=== PATIENT | male | born 1945 | race Caucasian/White ===

== ENCOUNTER 2016-12-12 12:03 | Inpatient (IN) | payer OTHER ==
--- NOTE | ~2016-12-12 | CR63 ---
[facility] A Service of [facility] RADIOLOGY TEXT RESULTS PATIENT: HANNAH SHRESTHA LOCATION: [facility] 308- : 43 UNIT #: [id number] AGE: [address]: Chelsea Rivers MD SEX: M ORDER DR: [id number] [facility] [address]. [place], [place] [address] [id number] I MR#: [id number] Acc #: [id number] NAME: HANNAH SHRESTHA : 1945 SEX: M STUDY DATE/TIME: 12/14/2016 18:02 UNIT: [address] ROOM: [facility] STUDY DESCRIPTION: CR Chest 2 View Attending Physician: Chelsea Rivers M.D. Ordering Physician: Chelsea Rivers M.D. MEDICAL IMAGING REPORT This report is preliminary unless electronic signature is present EXAM Chest, PA and lateral, 12/14/2016. HISTORY Short of breath for 5 days, unable to keep food down, abdominal pain. Smoking history. FINDINGS The heart is enlarged, but stable, compared with 10/09/2016, status post median sternotomy. Tracheostomy is unchanged. There are bilateral pleural effusions, with bibasilar infiltrates or atelectasis. Underlying emphysematous changes. Mild pulmonary edema. No pneumothorax. Right humeral prosthesis. Dictated by... Eb Hoang M.D. THIS IS AN ELECTRONICALLY VERIFIED REPORT Eb Hoang M.D. at 12/15/2016 3:30 PM Karen TD: 12/15/2016 14:41 JOB #: [id number] MEDICAL IMAGING REPORT COPY
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
--- NOTE | ~2016-12-12 | OR ---
Unit #: [id number] #: [id number] Patient: HANNAH SHRESTHA [id number] [address] [address] [id number] I MR#: [id number] NAME: HANNAH SHRESTHA ROOM: [facility] Date of Procedure: 12/14/2016 Admission Date: 12/12/2016 Surgeon: Adam Mcpherson M.D. : 1945 Attending Physician: Chelsea Rivers M.D. OPERATIVE REPORT PROCEDURE PERFORMED Esophagogastroduodenoscopy with biopsy. INDICATIONS FOR PROCEDURE The patient with severe epigastric and upper abdominal pain, history of peptic ulcer disease, and esophagitis. MEDICATIONS Monitored anesthesia. POSTOPERATIVE FINDINGS 1. No esophagitis noted. 2. Mild gastritis involving body and antrum, biopsy was taken. No ulcers were seen. 3. Normal duodenum and distal duodenum. PLAN Continue with PPI and symptomatic treatment. DESCRIPTION OF PROCEDURE The patient was explained of the procedure, risks, and benefits along with risks and benefits of anesthesia. He was brought to the endoscopy room. Propofol anesthesia was given. Bite block was placed. The scope was passed down the mouth into the esophagus, stomach, duodenum, and distal duodenum. Findings as described. Biopsies were taken. Gently, the scope was pulled out of the patient's mouth. He tolerated it well. Dictated by... Samantha Shi/cinthya TD: 12/14/2016 22:44 JOB #: [id number] Unit #: [id number] #: [id number] Patient: HANNAH SHRESTHA OPERATIVE REPORT X Adam Mcpherson MD X PROCEDURE OPERATIVE NOTE
--- NOTE | ~2016-12-12 | CT4 ---
[facility] A Service of [facility] RADIOLOGY TEXT RESULTS PATIENT: HANNAH SHRESTHA LOCATION: [facility] 308- : 43 UNIT #: [id number] AGE: [address]: Chelsea Rivers MD SEX: M ORDER DR: [id number] [facility] [address] [place], [place] [address] [id number] I MR#: [id number] Acc #: [id number] NAME: HANNAH SHRESTHA : 1945 SEX: M STUDY DATE/TIME: 12/12/2016 19:42 UNIT: A [facility] ROOM: [facility] STUDY DESCRIPTION: CT Abd and Pelv Wo Cont Attending Physician: Chelsea Rivers M.D. Ordering Physician: Adam Mcpherson M.D. MEDICAL IMAGING REPORT This report is preliminary unless electronic signature is present EXAM CT abdomen and pelvis without contrast, 12/12/2016 HISTORY Left-side upper and lower abdomen pain and nausea and vomiting for [address] exam was performed with one or more of the following radiation dose reduction techniques: automatic exposure control, adjustment of mA and/or kV according to patient size, and iterative reconstruction. FINDINGS CT abdomen and pelvis was performed with oral contrast and without IV contrast. CT ABDOMEN: Mild patchy subsegmental pulmonary infiltrate or atelectasis in the posterior left lung base. Sludge or small stones in the gallbladder versus excreted contrast. The liver, spleen, left kidney, and adrenal glands are normal. A 1 cm cyst in the lateral mid-right kidney. Pancreatic parenchymal atrophy. Normal caliber abdominal aorta. CT PELVIS: Normal appendix. Streak artifact from right hip prosthesis degrades several images. Lumbosacral interspace implant. The visualized urinary bladder is unremarkable. No ascites or inflammatory stranding. IMPRESSION 1. No acute findings in the abdomen or pelvis. No bowel obstruction or urinary obstruction. Mild patchy subsegmental pulmonary infiltrate or atelectasis in the posterior left lung base. 2. Generalized pancreatic parenchymal atrophy. 3. Normal appendix. [facility] A Service of [facility] RADIOLOGY TEXT RESULTS PATIENT: HANNAH SHRESTHA LOCATION: [facility] 308-01 : 43 UNIT #: [id number] AGE: [address]: Chelsea Rivers MD SEX: M ORDER DR: Dictated by... Antione Foss M.D. THIS IS AN ELECTRONICALLY VERIFIED REPORT Antione Foss M.D. at 12/13/2016 2:20 PM FAUSTO/evaristo TD: 12/13/2016 04:27 JOB #: [id number] MEDICAL IMAGING REPORT COPY
--- NOTE | ~2016-12-12 | CO ---
Unit #: [id number] #: [id number] Patient: HANNAH SHRESTHA [id number] [address] [place], [place] [address] [id number] I MR#: [id number] NAME: HANNAH SHRESTHA ROOM: 308 Age: 71 Sex: M Admission Date: 12/12/2016 : 1945 Attending Physician: Chelsea Rivers M.D. Consultation Date: 12/12/2016 CONSULTATION REPORT REASON FOR CONSULTATION Abdominal pain. HISTORY OF PRESENTING ILLNESS Mr. Khalil is a 71-year-old gentleman with history of severe COPD with tracheostomy, coronary artery disease, and hypertension. He was admitted today with complaints of abdominal pain. He has been having abdominal pain for 4 days. It is moderate to severe. He has been having recurrent vomiting every time he eats. He throws up. He has no hematemesis. He has not had a bowel movement in 4 days. Denies any fever or chills. Denies any NSAID use. Denies any alcohol use. PAST MEDICAL HISTORY Significant for history of severe esophagitis and antral ulcer in the past, otherwise as mentioned above. SOCIAL HISTORY Nonsmoker. Nonalcoholic. FAMILY HISTORY Noncontributory. MEDICATIONS Reviewed. REVIEW OF SYSTEMS Complete 10-point review of systems was done, as mentioned above. Review of further systems was negative. PHYSICAL EXAMINATION VITAL SIGNS: Stable. Temperature 97.5, pulse 61, respirations 18, blood pressure 114/66. HEENT: Pupils equal and reactive. Sclerae anicteric. Oral mucosa moist. NECK: No JVD. No lymphadenopathy. CHEST: Clear to auscultation. Few scattered rhonchi bilaterally. CARDIOVASCULAR: Regular rate and rhythm. No murmurs. ABDOMEN: Significantly tender particularly in the left upper quadrant, left flank area. No guarding. No masses palpable. No ascites clinically. EXTREMITIES: Without clubbing, cyanosis, or edema. NEUROLOGIC: Intact. SKIN: Warm and dry. DIAGNOSTIC STUDIES LABORATORY RESULTS: Chemistry showed BUN and creatinine 28 and 2.3, which Unit #: [id number] #: [id number] Patient: HANNAH SHRESTHA is new. LFTs were normal. Amylase 51, borderline high. Lipase 43. CBC with a hemoglobin of 11.4, platelet count and white count normal. ASSESSMENT AND PLAN The patient with significant new onset abdominal pain. Amylase and lipase are not consistent with acute pancreatitis. History of severe esophagitis and peptic ulcer disease in the past. CT scan is pending at this time. We will continue with PPI therapy, symptomatic pain control, and IV hydration for now. We will keep him n.p.o. until diagnosis as established. Thank you, Dr. Rivers for this interesting consult. We will follow along. Dictated by... Samantha Shi/cinthya TD: 12/13/2016 01:10 JOB #: [id number] CONSULTATION REPORT X Adam Mcpherson MD X CONSULTATION REPORT
[~2016-12-12 12:03] MED LIST: ALLERGY10 M2 PO; AMIODARONE PO; ANEXSIA 7.5/3251 TA1 PO; ANTI-DIARRHEAL2 M1 PO; ASPIRIN EC81 M1 PO; ASPIRIN PO; ASPIRIN81 MG PO; ATORVASTATIN CA20 MG PO; AUGMENTIN875 MG PO; B-12500 MCG PO; BACLOFEN10 MG PO; BACLOFEN20 M1 PO; BAYER CHEWABLE81 MG PO; CALCITONIN; CALCITONIN PO; CALCIUM + D 6001 TA1 PO; CARDIZEM CD120 M1 PO; CARTIA XT120 MG PO; CELEXA10 M1 PO; CELEXA10 MG PO; CITALOPRAM HBR10 MG PO; CLOPIDOGREL BIS75 MG PO; COLACE PO; COLESTID PO; COLESTIPOL HCL1 G PO; COREG6.25 M1 PO; CYMBALTA PO; DEPAKOTE ER250 MG PO; DESYREL50 MG PO; DIVALPROEX SOD250 M1 PO; DOXYCYCLINE HY100 M3 PO; ELIQUIS5 MG PO; FLAGYL PO; FUROSEMIDE40 MG PO; HYDROCODON-ACE1 EAC5 PO; HYDROCODON-ACE1 EAC7 PO; HYDROCODONE-APA1 T54 PO; HYDROXYZINE HCL25 M1 PO; LASIX PO; LASIX20 MG PO; LEVAQUIN750 M1 PO; LEVAQUIN750 MG PO; LIPITOR20 MG PO; LOPRESSOR PO; MEDROL DOSEPAK4 MG PO; MELOXICAM15 MG PO; METOPROLOL TART25 MG PO; MINIPRESS1 MG PO; MOBIC PO; MOTRIN600 MG PO; NEURONTIN PO; NEURONTIN100 MG PO; NEURONTIN300 MG PO; NEURONTIN800 MG PO; NICOTINE TRANSD14 MG EXT; NITROGLYCERIN0.3 MG SL; NITROGLYCERIN0.4 MG SL; NITROSTAT0.6 MG SL; NYSTATIN5 ML PO; PANTOPRAZOLE SO40 MG PO; PERCOCET 5-3251 TAB PO; PHENERGAN25 M1 PO; PRAVACHOL PO; PREDNISONE PO; PREDNISONE10 MG PO; PREDNISONE10 MG/DOSE PO; PROTONIX PO; TOPROL XL50 MG PO; TRAZODONE PO; TYLENOL325 M1 PO; VANCOMYCIN HCL125 MG PO; VIT B-12 PO; VITAMIN B12-FO1 EACH PO; ZANAFLEX PO; ZYRTEC10 M2 PO; [UNRECOGNIZED DRUG - CODE]
[2016-12-12 14:17] LABS: HEMATOCRIT 35.1 % (38.0-50.0); HEMOGLOBIN 11.4 gm/dL (13.0-16.0); MEAN CELL VOLUME 84.6 FL (83-96); MEAN CORPUSCULAR HEMOGLOBIN 27.5 PG (28-34); MEAN CORPUSCULAR HGB CONC 32.5 g/dL (30-36); MEAN PLATELET VOLUME 8.7 FL (6.5-11.5); RED BLOOD COUNT 4.15 X10e (3.90-5.60); RED CELL DISTRIBUTION WIDTH 19.3 % (11.0-15.5); WHITE BLOOD COUNT 8.5 X10e3 (4.0-10.5)
[2016-12-12 14:42] LABS: ALBUMIN SERUM 3.1 g/dL (3.5-5.0); BILIRUBIN,TOTAL 0.6 mg/dL (0.2-2.0); BUN/CREATININE RATIO 12.17; CALCIUM SERUM 8.4 mg/dL (8.4-10.2); CREATININE SERUM 2.3 mg/dL (0.6-1.4); GLOM FILT RATE Estimated 29.8 mL/min (>60); POTASSIUM 5.2 mmol/L (3.5-5.1); PROTEIN TOTAL SERUM 6.5 g/dL (6.0-8.3)
[2016-12-13 07:09] LABS: HEMATOCRIT 32.1 % (38.0-50.0); HEMOGLOBIN 10.1 gm/dL (13.0-16.0); MEAN CELL VOLUME 83.9 FL (83-96); MEAN CORPUSCULAR HEMOGLOBIN 26.5 PG (28-34); MEAN CORPUSCULAR HGB CONC 31.6 g/dL (30-36); MEAN PLATELET VOLUME 8.4 FL (6.5-11.5); RED BLOOD COUNT 3.83 X10e (3.90-5.60); RED CELL DISTRIBUTION WIDTH 19.2 % (11.0-15.5); WHITE BLOOD COUNT 6.3 X10e3 (4.0-10.5)
[2016-12-13 07:13] LABS: ALBUMIN SERUM 2.5 g/dL (3.5-5.0); BILIRUBIN,TOTAL 0.6 mg/dL (0.2-2.0); BUN/CREATININE RATIO 13.52; CALCIUM SERUM 7.6 mg/dL (8.4-10.2); CREATININE SERUM 1.7 mg/dL (0.6-1.4); GLOM FILT RATE Estimated 42.2 mL/min (>60); POTASSIUM 4.2 mmol/L (3.5-5.1); PROTEIN TOTAL SERUM 5.2 g/dL (6.0-8.3)
[2016-12-13] MEDS ORDERED: NEURONTIN100 MG PO (12:29)
[2016-12-13] MEDS ORDERED: AMIODARONE HCL100 MG PO (12:32)
[2016-12-13] MEDS ORDERED: ALBUTEROL2.5 MG/0.5 INH (12:32)
[2016-12-13] MEDS ORDERED: CARTIA XT240 M1 PO (12:33)
[2016-12-13] MEDS ORDERED: IRON325 ( 65 ) PO (12:35)
[2016-12-13] MEDS ORDERED: LEVOTHYROXINE100 MCG PO (12:35)
[2016-12-13] MEDS ORDERED: METOPROLOL SUCC25 MG PO (12:36)
[2016-12-13] MEDS ORDERED: CLARITIN10 M2 PO (12:36)
[2016-12-13] MEDS ORDERED: FLOMAX0.4 M1 PO (12:37)
[2016-12-13] MEDS ORDERED: VITAMIN D50000 UNIT PO (12:38)
[2016-12-14 04:32] LABS: HEMATOCRIT 30.4 % (38.0-50.0); MEAN CELL VOLUME 84.4 FL (83-96); MEAN CORPUSCULAR HEMOGLOBIN 27.8 PG (28-34); MEAN CORPUSCULAR HGB CONC 32.9 g/dL (30-36); MEAN PLATELET VOLUME 8.3 FL (6.5-11.5); RED BLOOD COUNT 3.61 X10e (3.90-5.60); RED CELL DISTRIBUTION WIDTH 19.5 % (11.0-15.5); WHITE BLOOD COUNT 5.9 X10e3 (4.0-10.5)
[2016-12-14 05:53] LABS: ALBUMIN SERUM 2.4 g/dL (3.5-5.0); ALKALINE PHOSPHATASE 42 U/L (32-92); ALT (SGPT) 11 U/L (10-40); AST (SGOT) 24 U/L (10-42); BILIRUBIN,TOTAL 0.5 mg/dL (0.2-2.0); BLOOD UREA NITROGEN 14 mg/dL (9-23); BUN/CREATININE RATIO 11.66; CALCIUM SERUM 7.2 mg/dL (8.4-10.2); CARBON DIOXIDE 23 mmol/L (22-31); CHLORIDE 106 mmol/L (100-111); CREATININE SERUM 1.2 mg/dL (0.6-1.4); GLOM FILT RATE Estimated ABOVE60 mL/min (>60); GLUCOSE FASTING 68 mg/dL (70-110); POTASSIUM 3.4 mmol/L (3.5-5.1); PROTEIN TOTAL SERUM 4.9 g/dL (6.0-8.3); SODIUM 133 mmol/L (135-145)
[2016-12-15 05:41] LABS: HEMATOCRIT 30.4 % (38.0-50.0); HEMOGLOBIN 9.8 gm/dL (13.0-16.0); MEAN CELL VOLUME 84.7 FL (83-96); MEAN CORPUSCULAR HEMOGLOBIN 27.4 PG (28-34); MEAN CORPUSCULAR HGB CONC 32.3 g/dL (30-36); MEAN PLATELET VOLUME 8.4 FL (6.5-11.5); RED BLOOD COUNT 3.59 X10e (3.90-5.60); RED CELL DISTRIBUTION WIDTH 19.7 % (11.0-15.5); WHITE BLOOD COUNT 5.6 X10e3 (4.0-10.5)
[2016-12-15 06:18] LABS: ALBUMIN SERUM 2.2 g/dL (3.5-5.0); ALKALINE PHOSPHATASE 44 U/L (32-92); ALT (SGPT) 10 U/L (10-40); AST (SGOT) 22 U/L (10-42); BILIRUBIN,TOTAL 0.6 mg/dL (0.2-2.0); BLOOD UREA NITROGEN 7 mg/dL (9-23); CALCIUM SERUM 7.4 mg/dL (8.4-10.2); CARBON DIOXIDE 23 mmol/L (22-31); CHLORIDE 113 mmol/L (100-111); CREATININE SERUM 0.7 mg/dL (0.6-1.4); GLOM FILT RATE Estimated ABOVE60 mL/min (>60); GLUCOSE FASTING 68 mg/dL (70-110); POTASSIUM 3.8 mmol/L (3.5-5.1); PROTEIN TOTAL SERUM 4.7 g/dL (6.0-8.3); SODIUM 139 mmol/L (135-145)
[2016-12-15] MEDS ORDERED: NORCO 10-325 TA1 TAB PO (14:57)
== END 2016-12-15 15:26 | disposition home or self-care (01) | DRG 392 ==
LOC: CEDOF 12:03 → C3A PCU 12:56
PROVIDERS: Internal Medicine
PROC: B54NZZA Ultrasonography of Left Upper Extremity Veins, Guidance (ICD-10-PCS; 2016-12-14)
PROC: 0DB78ZX Excision of Stomach, Pylorus, Via Natural or Artificial Opening Endoscopic, Diagnostic (ICD-10-PCS; principal; 2016-12-14 15:05)
PROC: 05H433Z Insertion of Infusion Device into Left Innominate Vein, Percutaneous Approach (ICD-10-PCS; 2016-12-14 15:05)
DX: R10.9 Unspecified abdominal pain (principal); N17.9 Acute kidney failure, unspecified; L89.220 Pressure ulcer of left hip, unstageable; J98.11 Atelectasis; Z88.5 Allergy status to narcotic agent; Z91.041 Radiographic dye allergy status; I25.10 Atherosclerotic heart disease of native coronary artery without angina pectoris; Z95.1 Presence of aortocoronary bypass graft; J44.9 Chronic obstructive pulmonary disease, unspecified; F17.210 Nicotine dependence, cigarettes, uncomplicated; I10 Essential (primary) hypertension; E78.5 Hyperlipidemia, unspecified; Z86.73 Personal history of transient ischemic attack (TIA), and cerebral infarction without residual deficits; G89.4 Chronic pain syndrome; K59.00 Constipation, unspecified; K29.70 Gastritis, unspecified, without bleeding
CPT/HCPCS: 71020; 74176; 80053; 82150; 82947; 83690; 85027; 86140; 88305; 88312; 94640; 94760; C9113; J2270; J2370

== ENCOUNTER 2016-12-21 21:03 | Emergency (ER) | payer OTHER ==
[~2016-12-21 21:03] MED LIST changes: +ALBUTEROL2.5 MG/0.5 INH; +AMIODARONE HCL100 MG PO; +CARTIA XT240 M1 PO; +CLARITIN10 M2 PO; +FLOMAX0.4 M1 PO; +IRON325 ( 65 ) PO; +LEVOTHYROXINE100 MCG PO; +METOPROLOL SUCC25 MG PO; +NORCO 10-325 TA1 TAB PO; +VITAMIN D50000 UNIT PO
[2016-12-21 21:21] LABS: BASOPHIL# 0.1 X10e3 (0-0.3); BASOPHIL% 1.3 % (0-2.5); EOSINOPHIL# 0.1 X10e3 (0-0.7); EOSINOPHIL% 1.4 % (0.0-7.0); HEMATOCRIT 29.1 % (38.0-50.0); HEMOGLOBIN 9.4 gm/dL (13.0-16.0); LYMPHOCYTE# 2.1 X10e3 (1.0-3.5); MEAN CELL VOLUME 85.9 FL (83-96); MEAN CORPUSCULAR HEMOGLOBIN 27.6 PG (28-34); MEAN CORPUSCULAR HGB CONC 32.1 g/dL (30-36); MEAN PLATELET VOLUME 8.4 FL (6.5-11.5); MONOCYTE# 0.9 X10e3 (0-1.0); MONOCYTE% 12.7 % (3.0-12.0); NEUTROPHIL# 3.7 X10e3 (1.5-7.1); NEUTROPHIL% 53.6 % (40-75); PLATELET COUNT 208 X10e3 (140-420); RED BLOOD COUNT 3.39 X10e (3.90-5.60); RED CELL DISTRIBUTION WIDTH 21.1 % (11.0-15.5); WHITE BLOOD COUNT 6.9 X10e3 (4.0-10.5)
[2016-12-21 21:22] LABS: DIFF IND NO
== END 2016-12-21 22:43 | disposition home or self-care (01) ==
LOC: CED 21:03
PROVIDERS: Emergency Medicine
DX: L76.21 Postprocedural hemorrhage of skin and subcutaneous tissue following a dermatologic procedure (principal); I25.10 Atherosclerotic heart disease of native coronary artery without angina pectoris; E78.5 Hyperlipidemia, unspecified; J44.9 Chronic obstructive pulmonary disease, unspecified; I10 Essential (primary) hypertension; I63.9 Cerebral infarction, unspecified; F17.210 Nicotine dependence, cigarettes, uncomplicated; Z88.5 Allergy status to narcotic agent; Z91.041 Radiographic dye allergy status
CPT/HCPCS: 36415; 85025; 86900; 86901; 96374; 96375; 99284; J2270; J2405

== ENCOUNTER 2016-12-24 14:31 | Emergency (ER) | payer OTHER ==
--- NOTE | ~2016-12-24 | CR72 ---
[facility] A Service of [facility] RADIOLOGY TEXT RESULTS PATIENT: HANNAH SHRESTHA LOCATION: [facility] : 43 UNIT #: [id number] AGE: [address]: See Becker MD SEX: M ORDER DR: [id number] [facility] [address] [place], [place] [address] [id number] E MR#: [id number] Acc #: [id number] NAME: HANNAH SHRESTHA : 1945 SEX: M STUDY DATE/TIME: 12/24/2016 14:52 UNIT: [facility] ROOM: STUDY DESCRIPTION: CR Chest Single View Portable Attending Physician: See Becker M.D. Ordering Physician: See Becker M.D. Primary Care Physician: Nakita Quarles M.D. MEDICAL IMAGING REPORT This report is preliminary unless electronic signature is present EXAM Portable chest, 12/24 COMPARISON 12/14 HISTORY SUPPLIED Fall, shortness of breath, pain beginning today. FINDINGS An AP view is obtained. Tracheostomy tube is in good position. Cardiac size is stable. Bilateral interstitial infiltrates persist although there is a little better aeration in the bases. No fractures are identified. Patient does have apparent prior kyphoplasty and right shoulder replacement. CONCLUSION Underlying chronic lung disease with improved aeration at the bases and decrease in pleural fluid. Tracheostomy tube remains in good position. Postop changes of prior sternotomy, vertebroplasty and right shoulder arthroplasty. Dictated by... Sam Sibley M.D. THIS IS AN ELECTRONICALLY VERIFIED REPORT Sam Sibley M.D. at 12/26/2016 3:10 PM TRIPP/lorraine TD: 12/24/2016 19:59 JOB #: [id number] [facility] A Service of [facility] RADIOLOGY TEXT RESULTS PATIENT: HANNAH SHRESTHA LOCATION: [facility] : 43 UNIT #: [id number] AGE: [address]: See Becker MD SEX: M ORDER DR: MEDICAL IMAGING REPORT Page 1 of 1 COPY
--- NOTE | ~2016-12-24 | CT71 ---
[facility] A Service of [facility] RADIOLOGY TEXT RESULTS PATIENT: HANNAH SHRESTHA LOCATION: [facility] : 43 UNIT #: [id number] AGE: [address]: See Becker MD SEX: M ORDER DR: [id number] [facility] [address] [place], [place] [address] [id number] E MR#: [id number] Acc #: [id number] NAME: HANNAH SHRESTHA : 1945 SEX: M STUDY DATE/TIME: 12/24/2016 12:48 UNIT: [facility] ROOM: STUDY DESCRIPTION: CT Head Wo Contrast Attending Physician: See Becker M.D. Ordering Physician: See Becker M.D. Primary Care Physician: Nakita Quarles M.D. MEDICAL IMAGING REPORT This report is preliminary unless electronic signature is present EXAM CT brain without contrast 12/24/2016 HISTORY Fell this morning, head and neck pain. TECHNIQUE/COMPARISON Transaxial imaging of the brain was performed without contrast and compared to a study of December 29, 2015. This CT exam was performed with one or more of the following radiation dose reduction techniques: automatic exposure control, adjustment of mA and/or kV according to patient size, and iterative reconstruction. FINDINGS Ventricular size and configuration remain normal for the patient's age. No intra or extraaxial mass lesions, fluid collections or mass effect are seen. No focal areas of low attenuation or evidence of acute hemorrhage. The patient has chronic mucosal disease in the left maxillary sinus. There is some debris present dependently within the sphenoid sinus. No fractures are identified. CONCLUSION Age-appropriate atrophy. Paranasal sinus disease. No acute findings. Dictated by... Sam Sibley M.D. THIS IS AN ELECTRONICALLY VERIFIED REPORT Sam Sibley M.D. at 12/24/2016 5:09 PM TRIPP/curt TD: 12/24/2016 16:07 [facility] A Service of [facility] RADIOLOGY TEXT RESULTS PATIENT: HANNAH SHRESTHA LOCATION: [facility] #: [id number] : 43 UNIT #: [id number] AGE: [address]: See Becker MD SEX: M ORDER DR: JOB #: [id number] MEDICAL IMAGING REPORT Page 1 of 1 COPY
--- NOTE | ~2016-12-24 | EKG ---
PATIENT: HANNAH SHRESTHA UNIT #: [id number] Ventricular Rate: 70 BPM Atrial Rate: 70 BPM P-R Interval: 168 ms QRS Duration: 122 ms Q-T Interval: 444 ms QTC Calculation(Bezet): 479 ms P [place]: 72 degrees Calculated R [place]: -67 degrees Calculated T [place]: 78 degrees Diagnosis Line: Normal sinus rhythm Diagnosis Line: Left axis deviation Diagnosis Line: Right bundle branch block Diagnosis Line: Abnormal ECG Diagnosis Line: When compared with ECG of 10-OCT-2016 15:53, Diagnosis Line: Premature atrial complexes are no longer Present Diagnosis Line: Right bundle branch block is now Present Diagnosis Line: Confirmed by GANESH HUMPHREYS MD ([id number]) on Diagnosis Line: 12/25/2016 2:24:10 PM INTERPRETING MD: PETR LASSITER
--- NOTE | ~2016-12-24 | CR150 ---
[facility] A Service of [facility] RADIOLOGY TEXT RESULTS PATIENT: HANNAH SHRESTHA LOCATION: [facility] : 43 UNIT #: [id number] AGE: [address]: See Becker MD SEX: M ORDER DR: [id number] [facility] [address] [facility] [place], [place] [address] [id number] E MR#: [id number] Acc #: [id number] NAME: HANNAH SHRESTHA : 1945 SEX: M STUDY DATE/TIME: 12/24/2016 13:22 UNIT: [facility] ROOM: STUDY DESCRIPTION: CR Hip Min 2 Views Lt Attending Physician: See Becker M.D. Ordering Physician: See Becker M.D. Primary Care Physician: Nakita Quarles M.D. MEDICAL IMAGING REPORT This report is preliminary unless electronic signature is present EXAM Left hip series 11/26/2016 INDICATIONS 71-year-old male with fall today and pain. Left-sided abscess last Saturday, fell today. 2 views of the left hip. COMPARISON STUDIES No comparisons. FINDINGS The patient is status post total right hip replacement and surgery of the lumbosacral junction. The bones are osteopenic. No acute fracture. Mild degenerative change left hip. Atherosclerotic calcifications are present. Impression The bones are osteopenic. There is degenerative change of the left hip but no acute fracture. Preexisting postop changes of right hip replacement. Dictated by... Meño Mccall M.D. THIS IS AN ELECTRONICALLY VERIFIED REPORT Meño Mccall M.D. at 12/25/2016 9:11 AM Joanna TD: 12/24/2016 16:22 JOB #: [id number] MEDICAL IMAGING REPORT [facility] A Service [facility] RADIOLOGY TEXT RESULTS PATIENT: HANNAH SHRESTHA LOCATION: [facility] : 43 UNIT #: [id number] AGE: [address]: See Becker MD SEX: M ORDER DR: Page 1 of 1 COPY
--- NOTE | ~2016-12-24 | CT52 ---
[facility] A Service of [facility] RADIOLOGY TEXT RESULTS PATIENT: HANNAH SHRESTHA LOCATION: [facility] : 43 UNIT #: [id number] AGE: [address]: See Bekcer MD SEX: M ORDER DR: [id number] [facility] [address] [place], [place] [address] [id number] E MR#: [id number] Acc #: [id number] NAME: HANNAH SHRESTHA : 1945 SEX: M STUDY DATE/TIME: 12/24/2016 12:48 UNIT: [facility] ROOM: STUDY DESCRIPTION: CT Cervical Spine Wo Cont Attending Physician: See Becker M.D. Ordering Physician: See Becker M.D. Primary Care Physician: Nakita Quarles M.D. MEDICAL IMAGING REPORT This report is preliminary unless electronic signature is present EXAM CT of the cervical spine HISTORY Fell this morning complaining of head and neck pain. Previous cervical fusion. TECHNIQUE Transaxial imaging of the cervical spine was performed with multiplanar reconstructions. This CT exam was performed with one or more of the following radiation dose reduction techniques: automatic exposure control, adjustment of mA and/or kV according to patient size, and iterative reconstruction. COMPARISON Study is reviewed and compared directly to the patient's prior study of 01/23/2013. FINDINGS The patient has a tracheostomy tube in place. On the bottom most image the patient has an infiltrate in the left upper lobe. There is asymmetric apical pleural thickening on the right. Patient has had pedicle screw fixation from C3 through C7. There has been an anterior fusion at C6-7. There has been posterior decompression from C4-C6. Alignment is normal with no subluxations. There is osteopenia. No fractures or subluxation identified. The patient has had a hemilaminotomy at apparently T1 on the right. No fractures or subluxation identified. There is no paravertebral soft tissue swelling present. Dense atherosclerotic calcifications are seen in the carotid bifurcations. The patient has had a left radical neck dissection. CONCLUSIONS [facility] A Service of [facility] RADIOLOGY TEXT RESULTS PATIENT: HANNAH SHRESTHA [facility] #[facility] [id number] : 43 UNIT #: [id number] AGE: [address]: See Becker MD SEX: M ORDER DR: Postsurgical changes as detailed above. No subluxation or fractures identified. Postop changes of prior left radical neck dissection. Left upper lobe infiltrate which appears new. Biapical pleural thickening asymmetric, right greater than left. This also was present on the study of January of 2013. No fractures or subluxation identified. Dictated by... Sam Sibley M.D. THIS IS AN ELECTRONICALLY VERIFIED REPORT Sam Sibley M.D. at 12/24/2016 5:09 PM TRIPP/mike TD: 12/24/2016 16:51 JOB #: [id number] MEDICAL IMAGING REPORT COPY
[2016-12-24 15:16] LABS: BASOPHIL% 0.5 % (0-2.5); EOSINOPHIL% 0.3 % (0.0-7.0); HEMATOCRIT 27.2 % (38.0-50.0); HEMOGLOBIN 8.7 gm/dL (13.0-16.0); LYMPHOCYTE% 10.7 % (17.0-45.0); MEAN CELL VOLUME 87.7 FL (83-96); MEAN CORPUSCULAR HEMOGLOBIN 28.1 PG (28-34); MEAN PLATELET VOLUME 8.2 FL (6.5-11.5); MONOCYTE# 0.8 X10e3 (0-1.0); MONOCYTE% 8.3 % (3.0-12.0); NEUTROPHIL# 7.8 X10e3 (1.5-7.1); NEUTROPHIL% 80.2 % (40-75); PLATELET COUNT 195 X10e3 (140-420); RED CELL DISTRIBUTION WIDTH 20.9 % (11.0-15.5); WHITE BLOOD COUNT 9.7 X10e3 (4.0-10.5)
[2016-12-24 15:25] LABS: DIFF IND NO
[2016-12-24 15:45] LABS: ALBUMIN SERUM 2.7 g/dL (3.5-5.0); BILIRUBIN,TOTAL 0.3 mg/dL (0.2-2.0); CREATININE SERUM 1.7 mg/dL (0.6-1.4); GLOM FILT RATE Estimated 42.2 mL/min (>60); POTASSIUM 4.3 mmol/L (3.5-5.1); PROTEIN TOTAL SERUM 5.7 g/dL (6.0-8.3)
== END 2016-12-24 18:40 | disposition home or self-care (01) ==
LOC: CED 14:31
PROVIDERS: Emergency Medicine
DX: S41.012A Laceration without foreign body of left shoulder, initial encounter (principal); S41.011A Laceration without foreign body of right shoulder, initial encounter; S30.0XXA Contusion of lower back and pelvis, initial encounter; J18.9 Pneumonia, unspecified organism; W19.XXXA Unspecified fall, initial encounter; Y92.009 Unspecified place in unspecified non-institutional (private) residence as the place of occurrence of the external cause
CPT/HCPCS: 36415; 70450; 71010; 72125; 73502; 80053; 85025; 93005; 96365; 96367; 99284; J0456; J0696

== ENCOUNTER 2016-12-26 17:46 | Inpatient (IN) | payer OTHER ==
--- NOTE | ~2016-12-26 | DS ---
Unit #: [id number] #: [id number] Patient: HANNAH SHRESTHA [id number] [address] [address] [id number] I MR#: [id number] NAME: HANNAH SHRESTHA ROOM: 223 Age: 71 Sex: M Admission Date: 12/26/2016 : 1945 Discharge Date: 12/30/2016 Attending Physician: Dionisio Reeves M.D. Referring Physician: Nakita Quarles M.D. Primary Care Physician: Nakita Quarles M.D. DISCHARGE SUMMARY CONSULTATIONS HIPS. PROCEDURE PERFORMED On 12/28/2016, he underwent debridement of left hip wound. ADMITTING DIAGNOSES Bleeding and chronic left hip wound. DISCHARGE DIAGNOSES Bleeding and chronic left hip wound. SECONDARY DIAGNOSIS Anemia. BRIEF HOSPITAL COURSE This is a 71-year-old gentleman, who has undergone debridements of his chronic nonhealing left hip wound in a wound clinic. He had some severe bleeding at home, and came in and bleeding was subsided with some Surgicel. The following morning, he had some necrotic areas of the wound that needed further debridement. He was taken for that. His hemoglobin did drift down below 7 and he was transfused 2 units and his hemoglobin was 10 on the morning of discharge. DISPOSITION Discharged to home. DISCHARGE INSTRUCTIONS He is to continue dressing changes in the left hip with normal saline wet-to-dry dressing changes twice a day. His is one who helps to his dressing changes. He is to follow up with Dr. Locke in the Wound Clinic and has been instructed to resume his home medications. Dictated by... Mt Garza III, M.D. VCL/cinthya TD: 12/30/2016 23:37 JOB #: [id number] Unit #: [id number] #: [id number] Patient: HANNAH SHRESTHA DISCHARGE SUMMARY Page 1 of 1 X Mt Garza III, MD DISCHARGE SUMMARY
--- NOTE | ~2016-12-26 | HP ---
Unit #: [id number] #: [id number] Patient: HANNAH BELL [id number] [address] [place], [place] [address] [id number] I MR#: [id number] NAME: HANNAH BELL ROOM: 223 Age: 71 Sex: M Admission Date: 12/26/2016 : 1945 Attending Physician: Dionisio Reeves M.D. Referring Physician: Nakita Quarles M.D. Primary Care Physician: Nakita Quarles M.D. HISTORY AND PHYSICAL HISTORY OF PRESENT ILLNESS Mr. Bell is a 71-year-old white male with a tracheostomy in place who has a nonhealing left hip wound that had been debrided as an outpatient. This was debrided quite a few days ago. Evidently, he was doing some work yesterday and traumatized this briefly and the wound started bleeding and he could not stop it bleeding. He went to the emergency room. They cauterized it and placed some Surgicel-like material in the wound and the bleeding stopped. However, they wanted to admit him for observation and whether or not it would need any further debridement under anesthesia. PAST MEDICAL HISTORY See previous notes. The patient was just hospitalized approximately two weeks ago. He had complete workup at that time. His medical illnesses are listed as noted with cardiovascular disease and respiratory issues. He does have an indwelling tracheostomy. SOCIAL HISTORY He still smokes occasionally but no alcohol. ALLERGIES He has no known allergies except for codeine and IV contrast. MEDICATIONS His medications are listed per nurse's notes. He was on Plavix which could have contributed to the bleeding. PHYSICAL EXAMINATION GENERAL APPEARANCE: Cooperative, alert, white male. HEENT: Clear with tracheostomy in place. LUNGS: Scattered rales and rhonchi. CARDIAC: Rhythm is regular. ABDOMEN: Soft, nontender, no masses. The area in question is over the left hip. There is some necrotic sluff in the wound. I cannot tell whether or not the wound is really clean because of the material within the wound bed which appears to be the coagulant material. We will start dressing changes on him today and do them every six hours. We will use Candelario straps. I am going to keep him NPO after midnight tonight and we will possibly go ahead and let him go ahead and proceed with possible debridement if needed. Dictated by Lucio Locke M.D. Unit #: [id number] #: [id number] Patient: HANNAH BELL SHEREE/samantha TD: 12/27/2016 07:13 JOB #: [id number] HISTORY AND PHYSICAL Page 1 of 1 X Lucio Locke MD X HISTORY AND PHYSICAL
--- NOTE | ~2016-12-26 | OR ---
Unit #: [id number] #: [id number] Patient: HANNAH SHRESTHA [id number] [address] [place], [place] [address] [id number] Jeana MR#: [id number] NAME: HANNAH SHRESTHA ROOM: 223 Date of Procedure: 12/28/2016 Admission Date: 12/26/2016 Surgeon: Mt Garza III, M.D. : 1945 Attending Physician: Dionisio Reeves M.D. Referring Physician: Nakita Quarles M.D. Primary Care Physician: Nakita Quarles M.D. OPERATIVE REPORT PREOPERATIVE DIAGNOSES Nonhealing wound, left hip with necrosis. POSTOPERATIVE DIAGNOSES Nonhealing wound, left hip with necrosis. PROCEDURES PERFORMED Sharp excisional debridement including skin and subcutaneous tissue, involving the left hip wound that measured approximately 3 inches in diameter. ANESTHESIA General. SPECIMEN Necrotic wound tissue sent to pathology. COMPLICATIONS None apparent. INDICATIONS FOR PROCEDURE This is a 71-year-old gentleman, who has been having some debridements of the left hip wound as an outpatient. It has been chronic. He had some trauma to the area and developed some severe bleeding. He was brought in. The bleeding has subsided. There was some necrotic tissue around the edges and needs to be debrided. DESCRIPTION OF PROCEDURE After consent was obtained, the patient was brought to the operating room and placed in the supine position. We placed a bump under his left hip and the left hip was prepped and draped in standard surgical fashion. Using a scalpel, I performed sharp excisional debridement of the skin and subcutaneous tissue approximately 3 inches in diameter. The pre-existing wound was approximately 2.5 inches in diameter. I debrided this all back to viable tissue. I used cautery for hemostasis and I packed the wound with normal saline wet-to-dry dressing change. He tolerated the procedure without any problems and returned to recovery room in stable condition. Dictated by... Mt Garza III, M.D. Unit #: [id number] #: [id number] Patient: HANNAH SHRESTHA VCL/cinthya TD: 12/29/2016 21:36 JOB #: [id number] OPERATIVE REPORT Page 1 of 1 X Mt Garza III, MD PROCEDURE OPERATIVE NOTE
--- NOTE | ~2016-12-26 | CO ---
Unit #: [id number] #: [id number] Patient: HANNAH SHRESTHA [id number] [address] [place], [place] [address] [id number] I MR#: [id number] NAME: HANNAH SHRESTHA ROOM: 223 Age: 71 Sex: M Admission Date: 12/26/2016 : 1945 Attending Physician: Dionisio Reeves M.D. Primary Care Physician: Nakita Quarles M.D. Consultation Date: 12/27/2016 CONSULTATION REPORT REASON FOR CONSULTATION Medical management. IMPRESSION 1. Left hip cyst, status post excision with recurrent bleeding. 2. Acute blood loss anemia. 3. Chronic hypoxic respiratory failure. 4. Chronic pain syndrome with prior drug seeking behavior. 5. Chronic obstructive pulmonary disease. 6. Coronary artery disease. 7. Frequent PACs. 8. Depression. 9. Gastroesophageal reflux disease. 10. Diastolic dysfunction, last known ejection fraction 45% to 50%. 11. Tobaccoism. 12. Moderate protein malnutrition. 13. Underweight. PLAN 1. We will continue pressure to the wound per Dr. Locke recommendations. We were re-evaluated in case we need further surgical debridement. 2. We will check CBC in the morning and transfuse if necessary. We will check iron and vitamin B12 levels as well and replace if necessary. 3. We will maintain the patient on his home oxygen on 3 L per nasal cannula continuously and my experience with the patient he only uses this on an intermittent basis. 4. Continue home medications for coronary artery disease, COPD, reflux, and depression. 5. We will maintain pain control per [facility]SA's recommendations. 6. SCDs for DVT prophylaxis. HISTORY OF PRESENT ILLNESS Mr. Khalil is a 71-year-old male, known to me who was admitted by A due to left hip bleeding. The patient had reportedly undergone excision of a cyst of the left hip a few weeks ago as an outpatient. About a week after the wound was excised, he developed some bleeding. He presented to the ER on 12/21/2016 for this bleeding and fortunately Dr. Becker was able to get the bleeding stopped. The patient presented back to his primary care physician, at which point, his hemoglobin was stable. The patient was supposed to follow up with Dr. Cornelia today, but yesterday without falling, without any trauma to the wound, without any lifting, his left hip wound began spontaneously bleed. He reportedly soaks through approximately 5 or 6 towels at home, and in the EMS and in Unit #: [id number] #: [id number] Patient: HANNAH SHRESTHA MARY ALICE the ER before the wound was cauterized and I believe Surgicel was also placed. He has not had any further bleeding since that time, but blood counts have dropped. He was placed in observation by [facility] for evaluation and we have been asked to see the patient for his chronic medical conditions. He denies any shortness of breath, chest pain, cough, diarrhea, constipation, melena, or hematochezia. He did recently have a fall at home. He states he feels well otherwise. He denies any dizziness. Denies any fever. He was asking for more pain medications. PAST MEDICAL HISTORY 1. Chronic hypoxic respiratory failure, reportedly maintained on 3 L of oxygen per nasal cannula continuously. 2. Chronic obstructive pulmonary disease. 3. Frequent PACs, which are intermittently symptomatic. 4. Coronary artery disease. 5. Tobaccoism. 6. Hyperlipidemia. 7. Gastroesophageal reflux disease. 8. Depression. 9. History of supraventricular tachycardia. 10. Congestive heart failure, diastolic. 11. Osteoporosis with history of T6 vertebral fracture. 12. Prior history of stroke without residual deficits. 13. Chronic trach following injuries in [place]. 14. Hypothyroidism. 15. Benign prostatic hypertrophy. PAST SURGICAL HISTORY 1. Recent excision of left hip cyst. 2. Prior kyphoplasty to T6. 3. Tracheostomy, multiple neck and back surgeries related to traumatic injuries in [place]. 4. Right shoulder surgery. 5. Coronary artery bypass grafting. ALLERGIES Include codeine and IV dye. HOME MEDICATIONS Include Lipitor 20 mg daily, baclofen 10 mg b.i.d., Celexa 10 mg daily, Depakote ER 250 mg daily, Neurontin 200 mg at bedtime, nitroglycerin 0.4 mg sublingual p.r.n. for chest pain, Protonix 40 mg daily, Desyrel 50 mg at bedtime, Plavix 75 mg daily which is currently on hold, Neurontin 100 mg p.o. b.i.d., amiodarone 200 mg daily, Cartia XT 240 mg daily, iron 325 mg daily, levothyroxine 100 mcg p.o. daily, Claritin 10 mg p.o. daily, metoprolol succinate 25 mg daily, Flomax 0.4 mg daily, vitamin D 50,000 units once weekly, [place] 10/325 one tablet p.o. b.i.d. FAMILY HISTORY Negative. SOCIAL HISTORY The patient still lives in home with his and is independent with ADLs. He continues to smoke a few cigarettes daily and he does use a walker to ambulate. REVIEW OF SYSTEMS With the exception of some left hip pain and recent bleeding, 10-point Unit #: [id number] #: [id number] Patient: HANNAH SHRESTHA review of systems was reviewed extensively and was negative. PHYSICAL EXAMINATION VITAL SIGNS: Temperature 98.0, blood pressure 106/56, pulse rate 63, respiratory rate 16, oxygen saturations 100% on room air. GENERAL: The patient is awake and alert. He is oriented x3. HEENT: Pupils are equally round and react to light bilaterally. Anicteric sclerae. Mild conjunctival pallor. Oropharynx with moist mucous membranes. No erythema or exudate. NECK: Supple. No lymphadenopathy. No thyromegaly. No JVD. Trach is in place and there is no erythema or drainage surrounding the trach. HEART: Regular rate and rhythm without murmur, rub, or gallop. LUNGS: Diminished bilaterally, but otherwise clear without wheezes, rhonchi, or crackles. ABDOMEN: Soft, nontender, and nondistended. Positive bowel sounds. No appreciable hepatosplenomegaly. EXTREMITIES: No cyanosis or clubbing. Trace lower extremity edema. Pedal pulses 2/4. SKIN: Warm and moist. There is some mild pallor. Left hip currently has a dressing in place. NEUROLOGIC: Cranial nerves II through XII intact. Sensation strength and deep tendon reflexes are grossly normal. PSYCHIATRIC: Alert and oriented x3. No suicidal or homicidal ideation. DIAGNOSTIC STUDIES LABORATORY RESULTS: Blood work done in the emergency department, there was a normal INR of 1.2. BMP with a sodium 136, potassium 4.4, chloride 104, bicarb 25, BUN 19, creatinine 1.3, glucose is 79. Calcium mildly low at 8.1, but corrected with albumin is normal. White blood cell count 7.6, hemoglobin 7.9, and platelet count of a 195,000. The patient does have 2% bands. Hemoglobin on 12/24/2016 was 8.7. Creatinine at that time was mildly elevated at 1.7. Thank you for this consultation. We will continue to follow the patient with you. Dictated by... Lovely Treviño M.D. CHRISTOPH/cinthya TD: 12/28/2016 04:12 JOB #: [id number] CONSULTATION REPORT Page 1 of 1 X Lovely Treviño MD X CONSULTATION REPORT
[2016-12-26 16:19] LABS: BASOPHIL% 0.6 % (0-2.5); EOSINOPHIL% 0.1 % (0.0-7.0); HEMATOCRIT 24.3 % (38.0-50.0); HEMOGLOBIN 7.9 gm/dL (13.0-16.0); LYMPHOCYTE# 1.5 X10e3 (1.0-3.5); LYMPHOCYTE% 19.5 % (17.0-45.0); MEAN CELL VOLUME 88.2 FL (83-96); MEAN CORPUSCULAR HEMOGLOBIN 28.6 PG (28-34); MEAN CORPUSCULAR HGB CONC 32.4 g/dL (30-36); MEAN PLATELET VOLUME 8.5 FL (6.5-11.5); MONOCYTE# 0.9 X10e3 (0-1.0); MONOCYTE% 12.1 % (3.0-12.0); NEUTROPHIL# 5.1 X10e3 (1.5-7.1); NEUTROPHIL% 67.7 % (40-75); PLATELET COUNT 195 X10e3 (140-420); RED BLOOD COUNT 2.75 X10e (3.90-5.60); RED CELL DISTRIBUTION WIDTH 21.7 % (11.0-15.5); WHITE BLOOD COUNT 7.6 X10e3 (4.0-10.5)
[2016-12-26 16:21] LABS: DIFF IND YES
[2016-12-26 16:25] LABS: INR 1.2; PARTIAL THROMBOPLASTIN TIME 26.1 SECONDS (23.5-31.3); PROTHROMBIN TIME (PATIENT) 12.3 SECONDS (9.6-11.5)
[2016-12-26 16:36] LABS: BUN/CREATININE RATIO 14.61; CALCIUM SERUM 8.1 mg/dL (8.4-10.2); CREATININE SERUM 1.3 mg/dL (0.6-1.4); GLOM FILT RATE Estimated 57.5 mL/min (>60); POTASSIUM 4.4 mmol/L (3.5-5.1)
[2016-12-26 16:45] LABS: ANISOCYTOSIS MOD; PLATELET ESTIMATE NORMAL (NORMAL)
[2016-12-26 16:46] LABS: ELLIPTOCYTES PRESENT; HYPOCHROMIA SL; STOMATOCYTE PRESENT
[2016-12-27 13:59] LABS: HEMATOCRIT 22.8 % (38.0-50.0); HEMOGLOBIN 7.2 gm/dL (13.0-16.0); MEAN CELL VOLUME 88.9 FL (83-96); MEAN CORPUSCULAR HEMOGLOBIN 28.1 PG (28-34); MEAN CORPUSCULAR HGB CONC 31.6 g/dL (30-36); MEAN PLATELET VOLUME 8.4 FL (6.5-11.5); RED BLOOD COUNT 2.56 X10e (3.90-5.60); RED CELL DISTRIBUTION WIDTH 22.2 % (11.0-15.5); WHITE BLOOD COUNT 10.4 X10e3 (4.0-10.5)
[2016-12-27 14:24] LABS: IRON SERUM 75 ug/dL (45-182); TOTAL IRON BINDING CAPACITY 189 ug/dL (252-460); TRANSFERRIN 135 mg/dL (180-329); TRANSFERRIN SATURATION 40 % (20-50)
[2016-12-28 07:16] LABS: HEMOGLOBIN 7.8 gm/dL (13.0-16.0); MEAN CELL VOLUME 90.1 FL (83-96); MEAN CORPUSCULAR HEMOGLOBIN 28.1 PG (28-34); MEAN CORPUSCULAR HGB CONC 31.2 g/dL (30-36); MEAN PLATELET VOLUME 8.5 FL (6.5-11.5); RED BLOOD COUNT 2.77 X10e (3.90-5.60); RED CELL DISTRIBUTION WIDTH 22.6 % (11.0-15.5); WHITE BLOOD COUNT 11.9 X10e3 (4.0-10.5)
[2016-12-29 05:41] LABS: HEMATOCRIT 20.8 % (38.0-50.0); MEAN CELL VOLUME 89.6 FL (83-96); MEAN CORPUSCULAR HEMOGLOBIN 28.2 PG (28-34); MEAN CORPUSCULAR HGB CONC 31.5 g/dL (30-36); MEAN PLATELET VOLUME 8.4 FL (6.5-11.5); RED BLOOD COUNT 2.32 X10e (3.90-5.60); RED CELL DISTRIBUTION WIDTH 22.5 % (11.0-15.5); WHITE BLOOD COUNT 7.3 X10e3 (4.0-10.5)
[2016-12-29 05:52] LABS: HEMOGLOBIN 6.5 gm/dL (13.0-16.0)
[2016-12-30 05:29] LABS: BASOPHIL% 0.4 % (0-2.5); EOSINOPHIL% 0.1 % (0.0-7.0); HEMATOCRIT 31.8 % (38.0-50.0); LYMPHOCYTE# 0.9 X10e3 (1.0-3.5); LYMPHOCYTE% 7.3 % (17.0-45.0); MEAN CELL VOLUME 90.2 FL (83-96); MEAN CORPUSCULAR HEMOGLOBIN 28.7 PG (28-34); MEAN CORPUSCULAR HGB CONC 31.8 g/dL (30-36); MEAN PLATELET VOLUME 8.3 FL (6.5-11.5); MONOCYTE# 0.9 X10e3 (0-1.0); MONOCYTE% 7.3 % (3.0-12.0); NEUTROPHIL# 10.6 X10e3 (1.5-7.1); NEUTROPHIL% 84.9 % (40-75); PLATELET COUNT 181 X10e3 (140-420); RED BLOOD COUNT 3.52 X10e (3.90-5.60); RED CELL DISTRIBUTION WIDTH 19.3 % (11.0-15.5)
[2016-12-30 05:34] LABS: DIFF IND NO; HEMOGLOBIN 10.1 gm/dL (13.0-16.0); WHITE BLOOD COUNT 12.5 X10e3 (4.0-10.5)
[2016-12-30] MEDS ORDERED: HYDROCODON-ACE1 EAC7 PO (09:45)
== END 2016-12-30 11:34 | disposition home or self-care (01) | DRG 857 ==
LOC: CED 17:46 → CEDOF 17:50 → C2A 12-27 00:55
PROVIDERS: Emergency Medicine; Internal Medicine; Surgery
PROC: 0JBM0ZZ Excision of Left Upper Leg Subcutaneous Tissue and Fascia, Open Approach (ICD-10-PCS; principal; 2016-12-28 07:30)
PROC: 30233N1 Transfusion of Nonautologous Red Blood Cells into Peripheral Vein, Percutaneous Approach (ICD-10-PCS; 2016-12-29)
DX: T81.4XXA Infection following a procedure, initial encounter (principal); D62 Acute posthemorrhagic anemia; J96.11 Chronic respiratory failure with hypoxia; I96 Gangrene, not elsewhere classified; E44.0 Moderate protein-calorie malnutrition; I50.32 Chronic diastolic (congestive) heart failure; Z68.1 Body mass index [BMI] 19.9 or less, adult; Z91.041 Radiographic dye allergy status; G89.4 Chronic pain syndrome; J44.9 Chronic obstructive pulmonary disease, unspecified; I25.10 Atherosclerotic heart disease of native coronary artery without angina pectoris; I49.1 Atrial premature depolarization; F32.9 Major depressive disorder, single episode, unspecified; K21.9 Gastro-esophageal reflux disease without esophagitis; Z99.81 Dependence on supplemental oxygen; M81.0 Age-related osteoporosis without current pathological fracture; Z86.73 Personal history of transient ischemic attack (TIA), and cerebral infarction without residual deficits; E03.9 Hypothyroidism, unspecified; N40.0 Benign prostatic hyperplasia without lower urinary tract symptoms; F17.210 Nicotine dependence, cigarettes, uncomplicated
CPT/HCPCS: 36415; 80048; 82607; 83540; 83550; 85025; 85027; 85610; 85730; 86850; 86900; 86901; 86923; 88304; 88312; 94760; 99285; J3010; P9016

== ENCOUNTER 2017-01-25 23:33 | Inpatient (IN) | payer OTHER ==
--- NOTE | ~2017-01-25 | OR ---
Unit #: [id number] #: [id number] Patient: HANNAH SHRESTHA [id number] [facility]. [place], [place] [address] [id number] I MR#: [id number] NAME: HANNAH SHRESTHA ROOM: [facility] Date of Procedure: 01/29/2017 Admission Date: 01/26/2017 Surgeon: Surendra Beckford M.D. : 1945 Attending Physician: Timothy Mcmahon M.D. Primary Care Physician: Nakita Quarles M.D. OPERATIVE REPORT PREOPERATIVE DIAGNOSIS Respiratory failure requiring ventilatory support per an endotracheal tube; the patient's tracheostomy tube was removed at the time of his resuscitation. POSTOPERATIVE DIAGNOSIS Respiratory failure requiring ventilatory support per an endotracheal tube; the patient's tracheostomy tube was removed at the time of his resuscitation. PROCEDURES PERFORMED Dilatation of the tracheostomy stoma using the Blue Rhino kit and with insertion of a #8 Shiley tracheostomy tube. ANESTHESIA IV sedation using Versed and fentanyl. ESTIMATED BLOOD LOSS Minimal. COMPLICATIONS None. DESCRIPTION OF PROCEDURE The patient was left in his intensive care unit bed in a supine position. IV sedation was obtained using 4 mg of intravenous Versed and 100 mcg of intravenous fentanyl. A rolled sheet was placed beneath the shoulders such as to extend the neck. The neck and upper chest were prepped with ChloraPrep and draped in a sterile fashion. The Blue Rhino kit was then obtained along with a #8 Shiley tracheostomy tube. With the patient's O2 sats up at about 98%, the endotracheal tube was removed. A guidewire was passed per the tracheostomy stoma down into the tracheobronchial tree. A guide catheter was then passed over the guidewire. Following this, the Blue Rhino dilator was passed over the guidewire and guide catheter into the trachea to dilate the tracheostomy stoma. The Blue Rhino dilator was removed keeping the guide catheter and guidewire in place. A #8 Shiley tracheostomy tube with the appropriate size dilator in place was then passed over the guidewire and guide catheter into the trachea. The guidewire, guide catheter, and dilator were all removed. The inner cannula of the tracheostomy tube was inserted and the balloon inflated. The patient was then ventilated per this new tracheostomy tube. The tracheostomy tube was secured in place using an adjustable tracheostomy collar. A cut 4x4 was placed beneath the tracheostomy tube. Estimated Unit #: [id number] #: [id number] Patient: HANNAH SHRESTHA blood loss in the procedure was minimal. The patient tolerated the procedure well. Dictated by... Samantha Hernandez/cinthya TD: 01/29/2017 23:42 JOB #: [id number] OPERATIVE REPORT Page 1 of 1 X Surendra Beckford MD X PROCEDURE OPERATIVE NOTE
--- NOTE | ~2017-01-25 | CT71 ---
[facility] A Service of [facility] RADIOLOGY TEXT RESULTS PATIENT: HANNAH SHRESTHA LOCATION: [address] : [birth year] UNIT #: [id number] AGE: [address]: Timothy Mcmahon MD SEX: M ORDER DR: [id number] [facility] [address]. [place], [place] [address] [id number] I MR#: [id number] Acc #: [id number] NAME: HANNAH SHRESTHA : 1945 SEX: M STUDY DATE/TIME: 01/26/2017 UNIT: [facility] ROOM: [facility] STUDY DESCRIPTION: CT Head Wo Contrast Attending Physician: Timothy Mcmahon M.D. Ordering Physician: Ed Doctor [id number] [facility] Primary Care Physician: Nakita Quarles M.D. MEDICAL IMAGING REPORT This report is preliminary unless electronic signature is present EXAM Head CT 01/26 at 14:04 INDICATIONS Status post full arrest yesterday. Ventilator patient. TECHNIQUE Axial images were obtained from the base to the vertex without contrast. This CT exam was performed with one or more of the following radiation dose reduction techniques: automatic exposure control, adjustment of mA and/or kV according to patient size, and iterative reconstruction. COMPARISON STUDIES 12/24/2016. FINDINGS Ventricular size and configuration within normal limits. There is no evidence of acute or subacute infarct. No hemorrhage is seen and there are no masses. Atherosclerotic calcifications are present in the carotid siphons. No skull fracture. There is chronic mucosal thickening in the ethmoid air cells. There is some generalized soft tissue edema in the scalp and neck. IMPRESSION No acute findings in the brain. There is some generalized soft tissue edema in the scalp and neck. Dictated by... [facility] A Service [facility] RADIOLOGY TEXT RESULTS PATIENT: HANNAH SHRESTHA LOCATION: [address] : [birth year] UNIT #: [id number] AGE: [address]: Timothy Mcmahon MD SEX: M ORDER DR: Markel Handy Jr., M.D. THIS IS AN ELECTRONICALLY VERIFIED REPORT Markel Handy Jr., M.D. at 01/29/2017 8:01 AM YEIMY/edwar TD: 01/26/2017 18:00 JOB #: [id number] MEDICAL IMAGING REPORT Page 1 of 1 COPY
--- NOTE | ~2017-01-25 | US84 ---
[id number] [facility] [address] [facility]. [place], [place] [address] [id number] I MR#: [id number] Acc #: [id number] NAME: HANNAH SHRESTHA : 1945 SEX: M STUDY DATE/TIME: 01/26/2017 11:22 UNIT: [facility] ROOM: [facility] STUDY DESCRIPTION: US LE Veins Complete Eliezer Stdy Attending Physician: Timothy Mcmahon M.D. Ordering Physician: Ed Doctor [id number] [facility] Primary Care Physician: Nakita Quarles M.D. MEDICAL IMAGING REPORT This report is preliminary unless electronic signature is present EXAM Bilateral leg vein Doppler 01/26 1122 hours INDICATIONS Status post cardiac arrest. Echocardiogram showed clot. History of hypertension, hyperlipidemia. TECHNIQUE Venous ultrasound examination of both lower extremities was performed using grayscale, spectral Doppler and color flow Doppler imaging. FINDINGS The examination is negative. There is no evidence of deep venous thrombus from the groin to the lower calf bilaterally. Visualized greater saphenous veins are also patent. IMPRESSION Negative examination. No evidence of lower extremity deep venous thrombosis. ADDENDUM There is some mild dilatation of the distal superficial femoral vein on the right side at 1.5 cm diameter. Dictated by... Markel Handy Jr., M.D. THIS IS AN ELECTRONICALLY VERIFIED REPORT Markel Handy Jr., M.D. at 01/26/2017 3:03 PM YEIMY/chandan TD: 01/26/2017 14:48 JOB #: [id number] MEDICAL IMAGING REPORT Page 1 of 1 COPY
--- NOTE | ~2017-01-25 | CR72 ---
[facility] A Service of [facility] RADIOLOGY TEXT RESULTS PATIENT: HANNAH SHRESTHA LOCATION: [facility] : [birth year] UNIT #: [id number] AGE: [address]: Timothy Mcmahon MD SEX: M ORDER DR: [id number] [facility]. [place], [place] [address] [id number] E MR#: [id number] Acc #: [id number] NAME: HANNAH SHRESTHA : 1945 SEX: M STUDY DATE/TIME: 01/25/2017 23:38 UNIT: [facility] ROOM: STUDY DESCRIPTION: CR Chest Single View Portable Attending Physician: Markel Gallagehr M.D. Ordering Physician: Markel Gallagher M.D. Primary Care Physician: Nakita Quarles M.D. MEDICAL IMAGING REPORT This report is preliminary unless electronic signature is present EXAM AP portable chest 01/25/2017 HISTORY 71-year-old male in the ED with cardiopulmonary arrest. Intubation. TECHNIQUE AP portable chest x-ray. FINDINGS Newly placed endotracheal tube in good position with tip in the mid thoracic trachea about 3.5 cm above the tobias. Right IJ central line with tip in the right brachiocephalic vein. No pneumothorax. Moderately dense diffuse interstitial and alveolar opacity throughout both lungs, most likely representing pulmonary edema. No visible pneumothorax. Median sternotomy. Previous mid thoracic vertebroplasty. Right shoulder arthroplasty. IMPRESSION 1. ETT and right IJ central line in good position as noted. 2. Probable diffuse pulmonary edema. Median sternotomy. Dictated by... Xavi Rose M.D. THIS IS AN ELECTRONICALLY VERIFIED REPORT Xavi Rose M.D. at 01/26/2017 5:57 AM RGW/joanr TD: 01/26/2017 01:02 JOB #: [id number] [facility] A Service of [facility] RADIOLOGY TEXT RESULTS PATIENT: HANNAH SHRESTHA LOCATION: [facility] : [birth year] UNIT #: [id number] AGE: [address]: Timothy Mcmahon MD SEX: M ORDER DR: MEDICAL IMAGING REPORT Page 1 of 1 COPY
--- NOTE | ~2017-01-25 | A ---
[facility] Nutrition Therapy DATE: 01/28/17 Patient: HANNAH SHRESTHA Physician: NETTIE Address: [address] [place] [address] Room/Bed: [address], Zip: [place] [address] Admit Date: 01/26/17 Date of : 41 Height: 5 5 Weight: 165 75 NUTRITIONAL ASSESSMENT: REASON: NPO IN ICU, ONE NUTRITION RISK PT RE: PRESSURE ULCER/NON-HEALING WOUND, ALSO CONSULT RE: ENTERAL NUTRITION SUPPORT PMH: CHRONIC RESP FAILURE, SEVERE COPD, S/P TRACHEOSTOMY, CAD, HTN, CVA, ULCERATIVE COLITIS ,CABG, HLD, HEPATITIS C Anthropometrics: 5'5", WT: 155# (BEDSIDE) (70 KG), BMI: 25.8, 114%IBW -WEIGHTS HAVE RANGED 148-165# SINCE ADMIT Labs: CA+:7.2, ALB: 1.9, AST: 52, NA+:129, LIPASE: 19 Meds: PEPCID, NACL, VERSED, SOLU-MEDROL, FUROSEMIDE I/O & Bowel function: 3268/888 Skin Integrity: (L) HIP PRESSURE ULCER (STAGE 1?), WOUND CAV EDEMA: PEDAL/ANKLE 1+ EDEMA; BILATERAL HANDS GENERALIZED EDEMA Estimated Nutrition Needs: 6162-6511 KCAL (25-30 KCAL/KG BW) 84-105 G PRO (1.2-1.5 G PRO/KG BW) FLUIDS CONSISTENT W/KCAL NEEDS OR MANAGE PER MD Assessment: CHART REVIEWED AND EVENTS NOTED. PT SEEN FOR NPO IN ICU, PRESSURE ULCER AND CONSULT RE: ENTERAL NUTRITION SUPPORT. PT CURRENTLY INTUBATED AND SEDATED AT TIME OF VISIT. NO FAMILY IN ROOM AT THIS TIME. PLANS IN PLACE FOR DHT PLACEMENT AND NEED FOR ENTERAL NUTRITION SUPPORT RECOMMENDATIONS. RD TO FOLLOW. SEE RECOMMENDATIONS BELOW. Dx: INADEQUATE ORAL INTAKE R/T DX, PT INTUBATED AND SEDATED AEB NPO STATUS. Intervention: 1. NPO 2. RD CONSULT Monitoring, Evaluation and Goals: 1. ENTERAL NUTRITION; PROVIDE ~80-100% ESTIMATED NUTRIENT NEEDS X 24 HOURS 2. ORAL INTAKE; ADVANCE DIET PER SCREW MACHINE ADJUSTER AUTOMATIC & TOLERATE DIET W/NO C/O N/V/D (PO>50%) 3. LABS; WNL: NA+ 4. SKIN; PROMOTE SKIN HEALING MONITOR: -WEIGHTS -TF RATE/RESIDUALS [facility] Nutrition Therapy DATE: 01/28/17 Patient: HANNAH WHEAT WILBERPATRICE Physician: NETTIE Address: [address] [place] [address] Room/Bed: [address], Zip: [place] [address] Admit Date: 01/26/17 Date of : 41 Height: 5 5 Weight: 165 75 -LABS -EXTUBATION? Recommendations: 1. ONCE MEDICALLY FEASIBLE, BEGIN ALTERNATIVE NUTRITION SUPPORT OF JEVITY 1.5 @ 20 ML/HR, ADVANCE 10 ML q 6 HOURS TO GOAL RATE OF 65 ML/HR -PROVIDES 2340 KCAL, 99 G PRO, 1186 ML FREE H20 ADD FREE H20 FLUSHES OF 160 ML q 4 HOURS TO MEET PT'S CURRENT ESTIMATED FLUID NEEDS OR MANAGE PER MD 2. ONCE PT EXTUBATED, ADVANCE DIET PER SCREW MACHINE ADJUSTER AUTOMATIC + HH DIET RD WILL F/U PER PROTOCOL PT IS SEVERELY COMPROMISED Respectfully, KATHIE SHARMA MS, RD, LD [facility] cc: client file
--- NOTE | ~2017-01-25 | EKG ---
PATIENT: HANNAH SHRESTHA UNIT #: [id number] Ventricular Rate: 78 BPM Atrial Rate: 78 BPM P-R Interval: 190 ms QRS Duration: 128 ms Q-T Interval: 440 ms QTC Calculation(Bezet): 501 ms P [place]: 81 degrees Calculated R [place]: -74 degrees Calculated T [place]: 82 degrees Diagnosis Line: Normal sinus rhythm Diagnosis Line: Left axis deviation Diagnosis Line: Non-specific intra-ventricular conduction block Diagnosis Line: Abnormal ECG Diagnosis Line: When compared with ECG of 26-JAN-2017 16:59, Diagnosis Line: QT has lengthened Diagnosis Line: Confirmed by SHARLA SOSA MD ([id number]) on Diagnosis Line: 01/27/2017 12:47:51 PM INTERPRETING MD: JOHN
--- NOTE | ~2017-01-25 | CO ---
Unit #: [id number] #: [id number] Patient: HANNAH SHRESTHA [id number] [address] [place], [place] [address] [id number] I MR#: [id number] NAME: HANNAH SHRESTHA ROOM: 91202 Age: 71 Sex: M Admission Date: 01/26/2017 : 1945 Attending Physician: Timothy Mcmahon M.D. Primary Care Physician: Nakita Quarles M.D. CONSULTATION REPORT REASON FOR CONSULTATION Critical care management. CHIEF COMPLAINT Shortness of breath and cardiac arrest. HISTORY OF PRESENT ILLNESS This patient, basically, is a 70-year-old male who has past medical history of chronic respiratory failure, coronary artery disease, stroke, triple bypass, ulcerative colitis, hepatitis C, and multiple medical disorders. Presented with a complaint of found unresponsive and an unknown down time. EMS was called. Patient was found in PEA and return of circulation after CPR with epinephrine and no shocks were given. Patient is currently on a ventilator. Has severe aspiration with severe ARDS. I am seeing him at the bedside. Patient is unresponsive. REVIEW OF SYSTEMS Unobtainable. PHYSICAL EXAMINATION VITAL SIGNS: Temperature is 94, pulse is 105, respirations 20, and blood pressure is 110/70. NEUROLOGIC: Sedated, intubated. CVS: S1+S2. RESPIRATORY: Bilateral air entry. Bilateral mild rhonchi. GI: Nontender. Soft. Bowel sounds positive. EXTREMITIES: No edema. DIAGNOSTIC STUDIES LABORATORY: Blood gas: pH of 7.27, pCO2 49, pO2 is 52, and sats are 77 on the previous gas. Sodium is 124, potassium 4.5, chloride 94, and bicarb is 24. White count is 29, hemoglobin 10, hematocrit 32, and platelet count is 191. IMAGING: Chest x-ray: Bilateral infiltrates. ASSESSMENT AND PLAN Altered mental status, cardiac arrest, status post (1) and shock, severe aspiration pneumonia, severe ARDS, hyponatremia, critically ill patient. Plan is told continue broad-spectrum IV antibiotics, continue Flolan, IV fluids, and GI and DVT prophylaxes. Patient will be closely monitored. TOTAL CRITICAL CARE TIME Unit #: [id number] #: [id number] Patient: HANNAH SHRESTHA Seventy-five minutes in direct critical care of this patient. PROGNOSIS Very poor. Please see orders for detailed plan. Thank you very much for this consultation. Dictated by... Samantha Bauer TD: 01/26/2017 09:04 JOB #: [id number] CONSULTATION REPORT Page 1 of 1 X Chelsea Rivers MD X CONSULTATION REPORT
--- NOTE | ~2017-01-25 | CR71 ---
[facility] A Service of [facility] & [facility] RADIOLOGY TEXT RESULTS PATIENT: HANNAH SHRESTHA LOCATION: [address] : [birth year] UNIT #: [id number] AGE: [address]: Timothy Mcmahon MD SEX: M ORDER DR: [id number] [facility] [address] [facility]. [place], [place] [address] [id number] I MR#: [id number] Acc #: [id number] NAME: HANNAH SHRESTHA : 1945 SEX: M STUDY DATE/TIME: 01/28/2017 2:51 UNIT: [facility] ROOM: [facility] STUDY DESCRIPTION: CR Chest Single View Attending Physician: Timothy Mcmahon M.D. Ordering Physician: Chelsea Rivers M.D. Primary Care Physician: Nakita Quarles M.D. MEDICAL IMAGING REPORT This report is preliminary unless electronic signature is present EXAM AP portable chest, 01/28/2017 HISTORY Respiratory failure. Followup cardiopulmonary status. TECHNIQUE AP portable chest x-ray. FINDINGS Exam shows no significant change since yesterday. Moderate diffuse interstitial and alveolar pulmonary opacity throughout both lungs with more dense infiltrate or atelectasis behind the heart. Endotracheal tube and right IJ central line in good position. Median sternotomy. IMPRESSION Stable portable chest radiograph, unchanged since yesterday. Dictated by... Xavi Rose M.D. THIS IS AN ELECTRONICALLY VERIFIED REPORT Xavi Rose M.D. at 01/28/2017 5:58 AM SJ/evaristo TD: 01/28/2017 04:43 JOB #: [id number] MEDICAL IMAGING REPORT Page 1 of 1 COPY
--- NOTE | ~2017-01-25 | CR72 ---
[facility] A Service of [facility] & [facility] RADIOLOGY TEXT RESULTS PATIENT: HANNAH SHRESTHA LOCATION: [address] : [birth year] UNIT #: [id number] AGE: [address]: Timothy Mcmahon MD SEX: M ORDER DR: [id number] [facility] [address] [facility] [place], [place] [address] [id number] I MR#: [id number] Acc #: [id number] NAME: HANNAH SHRESTHA : 1945 SEX: M STUDY DATE/TIME: 01/29/2017 4:42 UNIT: [facility] ROOM: [facility] STUDY DESCRIPTION: CR Chest Single View Portable Attending Physician: Timothy Mcmahon M.D. Ordering Physician: Chelsea Rivers M.D. Primary Care Physician: Nakita Quarles M.D. MEDICAL IMAGING REPORT This report is preliminary unless electronic signature is present EXAM Chest x-ray 01/29/2017 HISTORY Respiratory failure. Patient on ventilator. Follow up cardiopulmonary status. TECHNIQUE AP portable chest x-ray. FINDINGS The exam shows no change since yesterday. Dense airspace consolidation in the left medial lung base behind the heart with moderate diffuse interstitial and airspace opacity throughout the remaining portions of both lungs. No pneumothorax. Median sternotomy. Endotracheal tube and right IJ central line in good position. Feeding tube below the diaphragm. IMPRESSION Stable portable chest radiograph, unchanged since yesterday. Dictated by... Xavi Rose M.D. THIS IS AN ELECTRONICALLY VERIFIED REPORT Xavi Rose M.D. at 01/29/2017 9:53 PM SJ/gianni TD: 01/29/2017 07:02 JOB #: [id number] MEDICAL IMAGING REPORT Page 1 of 1 COPY
--- NOTE | ~2017-01-25 | EKG ---
PATIENT: HANNAH SHRESTHA UNIT #: [id number] Ventricular Rate: 75 BPM Atrial Rate: 75 BPM P-R Interval: 178 ms QRS Duration: 120 ms Q-T Interval: 398 ms QTC Calculation(Bezet): 444 ms P [place]: 34 degrees Calculated R [place]: -72 degrees Calculated T [place]: 89 degrees Diagnosis Line: Normal sinus rhythm Diagnosis Line: Left axis deviation Diagnosis Line: Incomplete left bundle branch block Diagnosis Line: Abnormal ECG Diagnosis Line: When compared with ECG of 26-JAN-2017 11:55, Diagnosis Line: (unconfirmed) Diagnosis Line: W[place] interval has decreased Diagnosis Line: Criteria for Inferior infarct are no longer Diagnosis Line: Present Diagnosis Line: Confirmed by RUFINA VANCE MD ([id number]) on 01/26/2017 Diagnosis Line: 6:44:57 PM INTERPRETING MD: RAJIV LASSITER
--- NOTE | ~2017-01-25 | EKG ---
PATIENT: HANNAH SHRESTHA UNIT #: [id number] Ventricular Rate: 67 BPM Atrial Rate: 67 BPM P-R Interval: 208 ms QRS Duration: 126 ms Q-T Interval: 474 ms QTC Calculation(Bezet): 500 ms P [place]: 60 degrees Calculated R [place]: -69 degrees Calculated T [place]: 93 degrees Diagnosis Line: Normal sinus rhythm Diagnosis Line: Left axis deviation Diagnosis Line: Right bundle branch block Diagnosis Line: Possible Lateral infarct , age undetermined Diagnosis Line: Inferior infarct , age undetermined Diagnosis Line: Abnormal ECG Diagnosis Line: When compared with ECG of 24-DEC-2016 14:31, Diagnosis Line: Inferior infarct is now Present Diagnosis Line: Confirmed by RAJIV LASSITER, RUFINA ([id number]) on 01/26/2017 Diagnosis Line: 6:31:24 PM INTERPRETING MD: RAJIV LASSITER
--- NOTE | ~2017-01-25 | DS ---
Unit #: [id number] #: [id number] Patient: HANNAH SHRESTHA [id number] [address] [place], [place] [address] [id number] I MR#: [id number] NAME: HANNAH SHRESTHA ROOM: [facility] Age: 71 Sex: M Admission Date: 01/26/2017 : 1945 Discharge Date: 01/29/2017 Attending Physician: Timothy Mcmahon M.D. Primary Care Physician: Nakita Quarles M.D. DISCHARGE SUMMARY REASON FOR ADMISSION Status post arrest. HISTORY OF PRESENT ILLNESS/HOSPITAL COURSE The patient is a 71-year-old male who presented secondary to PEA times two, initially at home and subsequently en route. Please see History and Physical for complete details. Patient was kept in the ICU for 72 hours. He received some intermittent sedation but in reality he had very little sedation through his initial part of hospital course. He was noted to have significant anoxic encephalopathy on admission. Consultations were placed to both Cardiology as well as Pulmonary services, Dr. Sumner as well as Dr. Rivers saw and evaluated the patient. Despite resuscitative measures, patient was noted to have aforementioned anoxic encephalopathy. He did have nonpurposeful movements. He was able to open his eyes but he was unable to track. He withdrew from pain and he visually appeared uncomfortable. After discussion with patient's who was present at bedside she stated the patient never wished to be resuscitated and she also stated that the patient would have never wanted to be on ventilator and/or have any of these treatments done. She requested the patient be made hospice and/or comfort care measures only. In regard to the same we have initiated, on 01/29/2017, comfort care measures only. CURRENT CLINICAL DIAGNOSIS 1. Kttwk-bt-[id number] respiratory failure, hypoxia/hypercapnia. 2. ARDS. 3. Status post resuscitated arrest times two. 4. End-stage chronic obstructive pulmonary disease. 5. Anoxic encephalopathy. 6. Coronary artery disease. 7. Systolic heart failure. 8. Severe valvular heart disease with tricuspid regurgitation, severe. 9. Hypotension on admission. 10. Sepsis present on admission. 11. Prior cerebrovascular accident history. 12. Hepatitis C. 13. Anemia. 14. Ongoing tobacco abuse. Unit #: [id number] #: [id number] Patient: HANNAH SHRESTHA 15. Chronic respiratory failure with trach present. DISPOSITION Comfort care measures only. Dictated by... Samantha Mcleod/ciarra TD: 01/29/2017 21:23 JOB #: [id number] DISCHARGE SUMMARY Page 1 of 1 X Timothy Mcmahon MD X DISCHARGE SUMMARY
--- NOTE | ~2017-01-25 | CR7 ---
[facility] A Service of [facility] RADIOLOGY TEXT RESULTS PATIENT: HANNAH SHRESTHA LOCATION: [place] [address] : [birth year] UNIT #: [id number] AGE: [address]: Timothy Mcmahon MD SEX: M ORDER DR: [id number] [facility] [address] [facility]. [place], [place] [address] [id number] I MR#: [id number] Acc #: [id number] NAME: HANNAH SHRESTHA : 1945 SEX: M STUDY DATE/TIME: 01/28/2017 11:28 UNIT: [facility] ROOM: [facility] STUDY DESCRIPTION: CR Abdomen Single AP View Attending Physician: Timothy Mcmahon M.D. Ordering Physician: Physician Non-Staff Primary Care Physician: Nakita Quarles M.D. MEDICAL IMAGING REPORT This report is preliminary unless electronic signature is present EXAM AP of the abdomen. INDICATION Dobbhoff tube placement. COMPARISON 02/13/2014 FINDINGS The tip of the Dobbhoff tube projects over the region of the stomach. IMPRESSION 1. Tip of the Dobbhoff tube projects over the region of the stomach. 2. Noted are some bilateral pulmonary infiltrates. Dictated by... Yasmani Morris M.D. THIS IS AN ELECTRONICALLY VERIFIED REPORT Yasmani Morris M.D. at 01/28/2017 4:29 PM ALEX/edie TD: 01/28/2017 12:09 JOB #: [id number] MEDICAL IMAGING REPORT Page 1 of 1 COPY
--- NOTE | ~2017-01-25 | CO ---
Unit #: [id number] #: [id number] Patient: HANNAH SHRESTHA [id number] [place] [address] [facility]. [place], [place] [address] [id number] I MR#: [id number] NAME: HANNAH SHRESTHA ROOM: [facility] Age: 71 Sex: M Admission Date: 01/26/2017 : 1945 Attending Physician: Timothy Mcmahon M.D. Primary Care Physician: Nakita Quarles M.D. CONSULTATION REPORT HISTORY OF PRESENT ILLNESS This is a 71-year-old male, he has been followed by Dr. Shepherd at [facility] in the past. He has a past medical history of coronary artery bypass surgery in 2008, which was performed at [facility] in [place], [place] with subsequent stent placement 6 months post CABG; history of SVT; hyperlipidemia; hypertension; COPD with continued tobacco abuse; reported history of CVA in the past; ulcerative colitis; history of hep C treated; chronic pain syndrome with compression fractures. Please note, the patient is currently unresponsive on the ventilator. All information was gathered from prior records as well as the nursing staff and his . According to the , who is currently at bedside. The patient was at home in his typical state of health until last evening when she states she heard him up in about in the house. She was trying to help him out of the bathroom when he suddenly collapsed. EMS was called. The patient was found to be in PEA and return of spontaneous circulation came after CPR and epinephrine. He is currently intubated. The patient underwent cardiac catheterization in 10/[address] Sumner. At that time, his catheterization showed: 1. Occluded right coronary artery with a patent saphenous vein graft. 2. Occluded left internal mammary artery graft to the distal LAD with a patent proximal LAD stent. 3. 40% to 50% stenosis second marginal branch of the circ, 100% stenosis vein graft to the second marginal branch with 90% marginal branch stenosis at the site of insertion. 4. Moderate LV systolic dysfunction with apical lateral wall hypokinesis, at that time, continued medical therapy was recommended. Initial EKG shows normal sinus rhythm, rate of 67 beats per minute, left axis deviation, right bundle-branch block, no acute ischemic change is noted, cannot rule out previous inferior infarct. Initial point of care troponin has been negative. The states that the patient has not complained recently of any chest pain or shortness of breath. At present, he is bradycardic and appears to be in idioventricular rhythm, rate in the 40s. He is currently on Levophed. We will also add dopamine. Blood pressures are running in the 70s to 80s systolic. At present, 2D echocardiogram is currently being performed at bedside. Preliminary review shows significant right RV dilation and tricuspid regurgitation. PAST MEDICAL HISTORY Unit #: [id number] #: [id number] Patient: HANNAH SHRESTHA 1. Hypertension. 2. Hyperlipidemia. 3. Known coronary artery disease, status post CABG in 2008 at [facility] with subsequent stent placement 6 months post surgery. 4. Cardiac catheterization per Dr. Sumner on 10/11/2016 showed a final diagnosis of SVT. 5. Occluded RCA with patent saphenous vein graft. 6. Occluded left internal mammary artery graft to the distal LAD with patent proximal LAD stent. 7. 40% to 50% stenosis in the second marginal branch of the circ, 100% stenosis vein graft to the second marginal branch with 90% marginal branch stenosis at the site of graft insertion. 8. Moderate LV systolic dysfunction with apical lateral wall hypokinesis, EF approximately 45%. He was advised medical management. 9. COPD with continued tobacco abuse. 10. History of SVT. 11. History of CVA. 12. Ulcerative colitis. 13. History of hepatitis C, which has been treated in the past. 14. Chronic pain syndrome with compression fractures. PAST SURGICAL HISTORY 1. Kyphoplasty in 09/2015. 2. Tracheostomy placed secondary to trauma which was sustained in [place]. 3. Multiple back and neck surgeries related to his trauma in [place]. 4. Right shoulder surgery. 5. Coronary artery bypass graft x3 in 2008, [facility] with subsequent PTCA and stent placement to an unknown vessel 6 months later. SOCIAL HISTORY The patient lives with his . Continues to smoke. Long smoking history approximately 30 to 40 years ago. No history of illicit drugs or alcohol. ALLERGIES Codeine and IV dye. HOME MEDICATIONS Lipitor 20 mg p.o. daily, baclofen 10 mg p.o. b.i.d., citalopram 10 mg p.o. daily, Depakote ER 250 mg p.o. daily, nitroglycerin 0.4 mg sublingual as directed p.r.n. chest pain, Protonix 40 mg p.o. daily, Plavix 75 mg p.o. daily, Neurontin 100 mg p.o. b.i.d. and 200 mg p.o. at bedtime, amiodarone 200 mg p.o. daily, Cartia XT 240 mg p.o. daily, ferrous sulfate 325 mg p.o. daily, levothyroxine 100 mcg p.o. daily, Claritin 10 mg p.o. daily, metoprolol succinate 25 mg p.o. daily, Flomax 0.4 mg p.o. daily, vitamin D3 50,000 units p.o. weekly, Lortab 10/325 one tab p.o. b.i.d. REVIEW OF SYSTEMS Unable to be obtained. DIAGNOSTIC STUDIES LABORATORY RESULTS: Initial troponin [id number] has been negative. Glucose 284, BUN 16, creatinine 0.9, sodium 124, potassium 4.5, chloride 94, CO2 of 24, calcium 7.3, albumin 2.7. PT 12.3, INR 1.2. Hemoglobin 10.2, hematocrit 32.5, WBCs 67012 with a left shift, platelet count 191. IMAGING STUDIES: Chest x-ray, imaging shows ET tube and right IJ central line in good position. Diffuse pulmonary edema probable median Unit #: [id number] #: [id number] Patient: HANNAH SHRESTHA MARY ALICE sternotomy. Venous Dopplers negative for DVT. He currently has a CTA of the chest, which is pending. CARDIOVASCULAR STUDIES: EKG shows normal sinus rhythm, 67 beats per minute, left axis deviation, right bundle-branch block, cannot rule out previous inferior infarct, no acute ischemic change. IMPRESSION The patient was admitted status post arrest appears to have been pulseless electrical activity arrest, return of spontaneous circulation after cardiopulmonary resuscitation and epinephrine. No shocks were given. At this time, we will continue with supportive care. He is currently on Levophed. We will add dopamine to attain a mean arterial pressure greater than 60 and maintained that. At present, he has a 2D echocardiogram is being performed at bedside. Preliminary review shows significant RV dilation with severe tricuspid regurgitation. Final review is pending. His 2D echocardiogram is suspicious for pulmonary embolus as compared to previous echo as his RV is significantly dilated compared to prior echocardiogram as reviewed per Dr. Castillo. Could consider candidacy for EKOS if CTA proves positive for pulmonary embolism. We will trend cardiac enzymes and serial EKGs. Call if troponin is greater than 0.5. All his blood pressure medications will be discontinued while on pressure support. He will have an EKG in the a.m. We will check BNP and also a D-dimer stat. We will follow labs in the a.m. get CBC, BMP, magnesium, TSH, and a fasting lipid. His pressure support will be continued to maintain a mean arterial pressure greater than 60. Dr. Castillo has discussed this with the and at this time she wants to continue with aggressive care. Prognosis appears poor. Dictated by... Juanita MahoneyRDeonna for Tea Castillo M.D. LMW/modl TD: 01/27/2017 04:09 JOB #: [id number] CONSULTATION REPORT Page 1 of 1 X Norma Zamarripa APRN X CONSULTATION REPORT
--- NOTE | ~2017-01-25 | EKG ---
PATIENT: HANNAH SHRESTHA UNIT #: [id number] Ventricular Rate: 71 BPM Atrial Rate: 71 BPM P-R Interval: 232 ms QRS Duration: 120 ms Q-T Interval: 438 ms QTC Calculation(Bezet): 475 ms P [place]: 86 degrees Calculated R [place]: -78 degrees Calculated T [place]: 87 degrees Diagnosis Line: Sinus rhythm with 1st degree A-V block Diagnosis Line: Left axis deviation Diagnosis Line: Right bundle branch block Diagnosis Line: Inferior infarct (cited on or before 25-JAN-2017) Diagnosis Line: Anterolateral infarct (cited on or before Diagnosis Line: 25-JAN-2017) Diagnosis Line: Abnormal ECG Diagnosis Line: When compared with ECG of 25-JAN-2017 23:56, Diagnosis Line: (unconfirmed) Diagnosis Line: Questionable change in initial forces of Diagnosis Line: Anterolateral leads Diagnosis Line: Confirmed by RUFINA VANCE MD ([id number]) on 01/26/2017 Diagnosis Line: 6:40:11 PM INTERPRETING MD: RAJIV LASSITER
--- NOTE | ~2017-01-25 | CT16 ---
[facility] A Service of [facility] & [facility] RADIOLOGY TEXT RESULTS PATIENT: HANNAH SHRESTHA LOCATION: [place] [address] : [birth year] UNIT #: [id number] AGE: [address]: Timothy Mcmahon MD SEX: M ORDER DR: [id number] [facility] [address] [place], [place] [address] [id number] I MR#: [id number] Acc #: [id number] NAME: HANNAH SHRESTHA : 1945 SEX: M STUDY DATE/TIME: 01/26/2017 14:07 UNIT: [facility] ROOM: [facility] STUDY DESCRIPTION: CT Angio Chest for PE Attending Physician: Timothy Mcmahon M.D. Ordering Physician: [facility] Primary Care Physician: Nakita Quarles M.D. MEDICAL IMAGING REPORT This report is preliminary unless electronic signature is present EXAM CT angiogram chest HISTORY Full rest yesterday and elevated D-dimer and on a ventilator. FINDINGS Axial images performed through the chest following IV contrast. 3-D coronal and sagittal reconstructed images reviewed at a workstation. This CT exam was performed with one or more of the following radiation dose reduction techniques: automatic exposure control, adjustment of mA and/or kV according to patient size, and iterative reconstruction. FINDINGS There are extensive areas of ground-glass opacities throughout both lungs with areas of dense consolidation within the lung bases which may represent a combination of atelectasis, pneumonia or edema. There are moderate bilateral pleural effusions, right greater than left, the right effusion layering to a depth close to 5 cm. The left effusion layers to a depth of about 2 cm. Background parenchyma suggests some degree of centrilobular emphysema. Extensive thickening and interlobular septa. Findings most likely represent diffuse interstitial and alveolar edema. Patient is intubated. Trachea and bronchi unremarkable. Normal enhancement of the pulmonary arteries. No evidence of embolus. Coronary artery calcifications noted. Heart size within normal limits. No pericardial effusion. Upper abdomen remarkable for small amount of ascites. Diffuse generalized body wall edema which may reflect anasarca. Patient is post median sternotomy with an apparent well-healed wound. Sclerotic foci within 1 of the mid-thoracic vertebral bodies suggests prior vertebroplasty. The T5 vertebral body demonstrates a biconcave STS. [facility] A Service of [facility] RADIOLOGY TEXT RESULTS PATIENT: HANNAH SHRESTHA LOCATION: [address] : [birth year] UNIT #: [id number] AGE: [address]: Timothy cMmahon MD SEX: M ORDER DR: fracture with greater than 50% loss of vertebral body height. There is also superior endplate compression fracture of T12 of about 20-30%. Patient is status post right shoulder arthroplasty. IMPRESSION 1. No evidence of pulmonary embolus. 2. Diffuse interstitial and alveolar edema probably represents cardiogenic pulmonary edema with moderate bilateral pleural effusions, right greater than left. This appears superimposed on background emphysema. 3. ET tube in satisfactory position. 4. Osteopenia with multiple thoracic compression fractures as detailed above. 5. Generalized anasarca and a small amount of ascites. Dictated by... Madelyn Morris M.D. THIS IS AN ELECTRONICALLY VERIFIED REPORT Madelyn Morris M.D. at 01/26/2017 8:37 PM JOSEPHINE/edwar TD: 01/26/2017 18:02 JOB #: [id number] MEDICAL IMAGING REPORT Page 1 of 1 COPY
--- NOTE | ~2017-01-25 | HP ---
Unit #: [id number] #: [id number] Patient: HANNAH SHRESTHA [id number] [address] [place], [place] [address] [id number] I MR#: [id number] NAME: HANNAH SHRESTHA ROOM: [facility] Age: 71 Sex: M Admission Date: 01/26/2017 : 1945 Attending Physician: Timothy Mcmahon M.D. Primary Care Physician: Nakita Quarles M.D. HISTORY AND PHYSICAL REASON FOR ADMISSION Status post arrest. HISTORY OF PRESENT ILLNESS The patient is a 71-year-old female to whom currently no family members are present at bedside. He is currently intubated on no sedation, on multiple pressors and placed in the ICU. The majority of this history as well as review of systems has been elicited from chart review. Apparently, while he was at home, he was status post full arrest. EMS Services were called. Upon initial evaluation, the patient was noted to be in PEA for unclear amount of time. He did receive epinephrine. Rhythm was restored. The patient was brought to the emergency room for further evaluation. While he was in the emergency room again, he underwent PEA, received norepinephrine as well as multiple shock. He was placed on norepinephrine drip IV, placed on vent support and I am currently evaluating him in the ICU. Pulmonary/ICU Services have already seen and evaluated the patient as have Cardiology. At the present time, he currently is on no sedation, intubated and, as mentioned above, on multiple pressors. PAST MEDICAL HISTORY 1. Numerous hospital admissions for acute on chronic respiratory failure with off and on admission, I see through November and December. Our previous hospital admission under our service was in the early part of October. 2. COPD. 3. T6 compression fracture. 4. SVT. 5. Coronary artery disease status post CABG. 6. Ongoing tobacco abuse. 7. Noncompliance. 8. CVA. 9. Hypertension. 10. Hyperlipidemia. 11. Prior history of C. diff. 12. Systolic heart failure with an ejection fraction of 45 to 50%. 13. Diastolic heart failure. 14. Prior history of kyphoplasty. 15. Prior history of tracheostomy. Unit #: [id number] #: [id number] Patient: HANNAH SHRESTHA 16. Multiple back and neck surgeries. 17. Right shoulder surgery. 18. Diverticulosis. 19. Internal hemorrhoids. SOCIAL HISTORY The patient resides at home with his . He smokes daily. No illicit drug use. No alcohol use. He is currently in a wheelchair/wheelchair bound. ALLERGIES Codeine, IV dye. HOME MEDICATIONS 1. Lipitor. 2. Baclofen. 3. Celexa. 4. Depakote. 5. Neurontin. 6. Sublingual nitro. 7. Protonix. 8. Trazodone. 9. Plavix. 10. Neurontin. 11. Amiodarone. 12. Cartia. 13. Synthroid. 14. Claritin. 15. Flomax. 16. Vitamin D. 17. [place]. REVIEW OF SYSTEMS Unable to do secondary to patient's current state. PHYSICAL EXAMINATION GENERAL APPEARANCE: A 71-year-old male lying comfortably, vent support, no distress. VITAL SIGNS: Temperature 97.8. Pulse 65. Respiratory rate 28. Blood pressure 123/58. HEENT: Head exam: Atraumatic. Ear exam: Tympanic membranes do not reveal any erythema or injection. NECK: Supple. CARDIOVASCULAR: S1, S2 without murmur. RESPIRATORY: Coarse breath sounds with rhonchi are noted bilaterally. Poor air exchange. GASTROINTESTINAL/ABDOMEN: Distension noted, nontender. LOWER EXTREMITIES: 1+ lower extremity edema noted. INITIAL ADMISSION DIAGNOSES 1. Acute hypoxic respiratory failure. 2. Status post arrest x2. 3. 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 4. Coronary artery disease. 5. Sepsis present on admission. 6. Hypotension currently on pressor support. 7. Prior CVA history. 8. End-stage COPD. Unit #: [id number] #: [id number] Patient: HANNAH SHRESTHA 9. Ongoing tobacco abuse. 10. Coronary artery disease. PLAN Admission ICU. Consultations have already been placed to hvac estimator as well as Cardiology. Currently, he is requiring no sedation and is on vent support. We will await neurologic return at 24, 48, as well as 72 hours. At this point in time, overall, his prognosis is poor at best. It seems likely he has suffered a significant anoxic encephalopathic injury. It is also noted he does have an elevated D-dimer and is current CTA chest is pending. For now, he will continue to receive supportive care. Neurology Services may be consulted after 48 to 72 hours. Overall, his prognosis is poor at best. Dictated by Samantha Mcleod/samantha TD: 01/26/2017 17:09 JOB #: [id number] HISTORY AND PHYSICAL Page 1 of 1 X Timothy Mcmahon MD X HISTORY AND PHYSICAL
--- NOTE | ~2017-01-25 | CR72 ---
[facility] A Service of [facility] & [facility] RADIOLOGY TEXT RESULTS PATIENT: HANNAH SHRESTHA LOCATION: [address] : [birth year] UNIT #: [id number] AGE: [address]: Timothy Mcmahon MD SEX: M ORDER DR: [id number] [facility] [address] [place], [place] [address] [id number] I MR#: [id number] Acc #: [id number] NAME: HANNAH SHRESTHA : 1945 SEX: M STUDY DATE/TIME: 01/27/2017 6:18 UNIT: [facility] ROOM: [facility] STUDY DESCRIPTION: CR Chest Single View Portable Attending Physician: Timothy Mcmahon M.D. Ordering Physician: Chelsea Rivers M.D. Primary Care Physician: Nakita Quarles M.D. MEDICAL IMAGING REPORT This report is preliminary unless electronic signature is present EXAM Portable chest INDICATIONS Ventilated patient. Shortness of air today. PROCEDURE Frontal view chest. COMPARISON 01/25/2017 FINDINGS Heart size stable. ET tube not significantly changed. Slightly improving opacities in the upper lung zones. No visible pneumothorax. IMPRESSION Slight interval improvement in opacity in the upper lung zones, otherwise stable. Dictated by... Hermes Gómez M.D. THIS IS AN ELECTRONICALLY VERIFIED REPORT Hermes Gómez M.D. at 01/28/2017 9:42 AM Theodore TD: 01/27/2017 08:18 JOB #: [id number] MEDICAL IMAGING REPORT Page 1 of 1 COPY
[2017-01-25 23:41] LABS: POC - CKMB 5.5 ng/mL (0.0-7.9); POC - TROPONIN <0.05 ng/mL (<=0.05)
[2017-01-25 23:54] LABS: BASOPHIL# 0.3 X10e3 (0-0.3); EOSINOPHIL# 0.1 X10e3 (0-0.7); EOSINOPHIL% 0.3 % (0.0-7.0); HEMATOCRIT 35.6 % (38.0-50.0); HEMOGLOBIN 11.2 gm/dL (13.0-16.0); LYMPHOCYTE# 3.7 X10e3 (1.0-3.5); LYMPHOCYTE% 13.6 % (17.0-45.0); MEAN CELL VOLUME 91.4 FL (83-96); MEAN CORPUSCULAR HEMOGLOBIN 28.6 PG (28-34); MEAN CORPUSCULAR HGB CONC 31.3 g/dL (30-36); MEAN PLATELET VOLUME 8.4 FL (6.5-11.5); MONOCYTE% 3.7 % (3.0-12.0); NEUTROPHIL# 22.3 X10e3 (1.5-7.1); NEUTROPHIL% 81.4 % (40-75); RED CELL DISTRIBUTION WIDTH 18.9 % (11.0-15.5); WHITE BLOOD COUNT 27.4 X10e3 (4.0-10.5)
[2017-01-25 23:56] LABS: ARTERIAL BLD GAS O2 SATURATION 83.6 % (90.0-100.0); ARTERIAL BLOOD GAS CARBOXY HB 2.9 %sat (0.0-9.0); ARTERIAL BLOOD GAS HCO3 19.2 mmol/L; ARTERIAL BLOOD GAS MET HB 0.5 %sat (0.0-2.0); ARTERIAL BLOOD GAS PCO2 48.8 mmHg (35.0-45.0); ARTERIAL BLOOD GAS pH 7.202 (7.350-7.450)
[2017-01-25 23:57] LABS: ARTERIAL BLOOD GAS ART SITE ARTERIAL LINE; ARTERIAL BLOOD GAS DELIVERY VENT; ARTERIAL BLOOD GAS PO2 65.6 mmHg (80.0-100); ARTERIAL BLOOD GAS VENT MODE A/C; ARTERIAL DRAW? YES
[2017-01-26 00:14] LABS: DIFF IND YES; PLATELET COUNT 78 X10e3 (140-420)
[2017-01-26 00:22] LABS: BUN/CREATININE RATIO 17.77; CALCIUM SERUM 7.5 mg/dL (8.4-10.2); CREATININE SERUM 0.9 mg/dL (0.6-1.4); GLOM FILT RATE Estimated 84.4 mL/min (>60)
[2017-01-26 00:27] LABS: DOHLE BODIES SL; ELLIPTOCYTES PRESENT; PLATELET ESTIMATE DECREASED (NORMAL)
[2017-01-26 00:29] LABS: ACANTHOCYTES PRESENT; ANISOCYTOSIS MOD
[2017-01-26 00:51] LABS: %MB 9.2 % (0.0-4.0); MB 8.6 ng/ml
[2017-01-26 03:23] LABS: ARTERIAL BLD GAS O2 SATURATION 77.9 % (90.0-100.0); ARTERIAL BLOOD GAS CARBOXY HB 2.1 %sat (0.0-9.0); ARTERIAL BLOOD GAS HCO3 23.1 mmol/L; ARTERIAL BLOOD GAS MET HB 0.4 %sat (0.0-2.0); ARTERIAL BLOOD GAS PCO2 49.5 mmHg (35.0-45.0); ARTERIAL BLOOD GAS pH 7.277 (7.350-7.450)
[2017-01-26 03:25] LABS: ARTERIAL BLOOD GAS PO2 52.5 mmHg (80.0-100)
[2017-01-26 03:26] LABS: ARTERIAL BLOOD GAS ART SITE ARTERIAL LINE; ARTERIAL BLOOD GAS DELIVERY VENT; ARTERIAL BLOOD GAS VENT MODE A/C; ARTERIAL DRAW? YES
[2017-01-26 07:11] LABS: BASOPHIL% 0.1 % (0-2.5); EOSINOPHIL% 0.1 % (0.0-7.0); HEMATOCRIT 32.5 % (38.0-50.0); HEMOGLOBIN 10.2 gm/dL (13.0-16.0); LYMPHOCYTE# 0.7 X10e3 (1.0-3.5); LYMPHOCYTE% 2.3 % (17.0-45.0); MEAN CELL VOLUME 90.2 FL (83-96); MEAN CORPUSCULAR HEMOGLOBIN 28.5 PG (28-34); MEAN CORPUSCULAR HGB CONC 31.5 g/dL (30-36); MEAN PLATELET VOLUME 8.6 FL (6.5-11.5); MONOCYTE# 1.3 X10e3 (0-1.0); MONOCYTE% 4.3 % (3.0-12.0); NEUTROPHIL% 93.2 % (40-75); RED CELL DISTRIBUTION WIDTH 18.8 % (11.0-15.5)
[2017-01-26 07:13] LABS: DIFF IND NO; PLATELET COUNT 191 X10e3 (140-420)
[2017-01-26 07:37] LABS: BUN/CREATININE RATIO 17.77; CALCIUM SERUM 7.3 mg/dL (8.4-10.2); CREATININE SERUM 0.9 mg/dL (0.6-1.4); GLOM FILT RATE Estimated 84.4 mL/min (>60); POTASSIUM 4.5 mmol/L (3.5-5.1)
[2017-01-26 09:13] LABS: ARTERIAL BLD GAS O2 SATURATION 97.5 % (90.0-100.0); ARTERIAL BLOOD GAS CARBOXY HB 1.2 %sat (0.0-9.0); ARTERIAL BLOOD GAS HCO3 20.8 mmol/L; ARTERIAL BLOOD GAS MET HB 0.4 %sat (0.0-2.0); ARTERIAL BLOOD GAS PCO2 42.2 mmHg (35.0-45.0); ARTERIAL BLOOD GAS pH 7.302 (7.350-7.450)
[2017-01-26 09:15] LABS: ARTERIAL BLOOD GAS ART SITE ARTERIAL LINE; ARTERIAL BLOOD GAS VENT MODE A/C; ARTERIAL DRAW? YES
[2017-01-26 11:48] LABS: %MB 9.1 % (0.0-4.0); MB 11.4 ng/ml
[2017-01-26 12:03] LABS: ARTERIAL BLD GAS O2 SATURATION 98.7 % (90.0-100.0); ARTERIAL BLOOD GAS HCO3 21.5 mmol/L; ARTERIAL BLOOD GAS MET HB 0.6 %sat (0.0-2.0); ARTERIAL BLOOD GAS pH 7.288 (7.350-7.450)
[2017-01-26 12:05] LABS: ARTERIAL BLOOD GAS ART SITE ARTERIAL LINE; ARTERIAL BLOOD GAS VENT MODE A/C; ARTERIAL DRAW? YES
[2017-01-26] MEDS ORDERED: CELEXA10 MG PO (12:06)
[2017-01-26] MEDS ORDERED: LIPITOR20 MG PO (12:06)
[2017-01-26] MEDS ORDERED: BACLOFEN10 MG PO (12:06)
[2017-01-26] MEDS ORDERED: DEPAKOTE ER250 MG PO (12:06)
[2017-01-26] MEDS ORDERED: NEURONTIN PO (12:08)
[2017-01-26] MEDS ORDERED: NITROGLYCERIN0.4 MG SL (12:40)
[2017-01-26] MEDS ORDERED: PROTONIX PO (12:41)
[2017-01-26] MEDS ORDERED: CLOPIDOGREL75 MG PO (12:42)
[2017-01-26] MEDS ORDERED: AMIODARONE HCL200 MG PO (12:43)
[2017-01-26] MEDS ORDERED: NEURONTIN100 MG PO (12:43)
[2017-01-26] MEDS ORDERED: IRON PO (12:44)
[2017-01-26] MEDS ORDERED: CARTIA XT240 MG PO (12:44)
[2017-01-26] MEDS ORDERED: LEVOXYL100 MC1 PO (12:45)
[2017-01-26] MEDS ORDERED: CLARITIN10 M3 PO (12:45)
[2017-01-26] MEDS ORDERED: METOPROLOL SUCC25 MG PO (12:49)
[2017-01-26] MEDS ORDERED: FLOMAX0.4 M1 PO (12:50)
[2017-01-26] MEDS ORDERED: VITAMIN D350000 UNIT PO (12:50)
[2017-01-26] MEDS ORDERED: LORTAB 10-3251 EACH PO (12:51)
[2017-01-26 17:19] LABS: ARTERIAL BLD GAS O2 SATURATION 98.7 % (90.0-100.0); ARTERIAL BLOOD GAS CARBOXY HB 0.8 %sat (0.0-9.0); ARTERIAL BLOOD GAS HCO3 23.6 mmol/L; ARTERIAL BLOOD GAS MET HB 0.8 %sat (0.0-2.0); ARTERIAL BLOOD GAS pH 7.329 (7.350-7.450)
[2017-01-26 17:20] LABS: ARTERIAL BLOOD GAS ART SITE ARTERIAL LINE; ARTERIAL BLOOD GAS DELIVERY VENT; ARTERIAL BLOOD GAS VENT MODE AC; ARTERIAL DRAW? YES
[2017-01-26 18:51] LABS: %MB 6.5 % (0.0-4.0); MB 11.3 ng/ml
[2017-01-27 04:26] LABS: ARTERIAL BLD GAS O2 SATURATION 98.8 % (90.0-100.0); ARTERIAL BLOOD GAS CARBOXY HB 0.7 %sat (0.0-9.0); ARTERIAL BLOOD GAS HCO3 25.2 mmol/L; ARTERIAL BLOOD GAS MET HB 0.8 %sat (0.0-2.0); ARTERIAL BLOOD GAS PCO2 39.6 mmHg (35.0-45.0); ARTERIAL BLOOD GAS pH 7.412 (7.350-7.450)
[2017-01-27 04:27] LABS: ARTERIAL BLOOD GAS ART SITE ARTERIAL LINE; ARTERIAL BLOOD GAS DELIVERY VENT; ARTERIAL BLOOD GAS VENT MODE AC; ARTERIAL DRAW? YES
[2017-01-27 04:55] LABS: LYMPHOCYTE# 0.5 X10e3 (1.0-3.5); LYMPHOCYTE% 4.2 % (17.0-45.0); MEAN CELL VOLUME 89.2 FL (83-96); MEAN CORPUSCULAR HEMOGLOBIN 28.7 PG (28-34); MEAN CORPUSCULAR HGB CONC 32.2 g/dL (30-36); MEAN PLATELET VOLUME 8.5 FL (6.5-11.5); MONOCYTE# 0.6 X10e3 (0-1.0); NEUTROPHIL# 10.4 X10e3 (1.5-7.1); NEUTROPHIL% 90.8 % (40-75); PLATELET COUNT 132 X10e3 (140-420); RED BLOOD COUNT 3.14 X10e (3.90-5.60); RED CELL DISTRIBUTION WIDTH 18.6 % (11.0-15.5)
[2017-01-27 04:58] LABS: DIFF IND NO; WHITE BLOOD COUNT 11.5 X10e3 (4.0-10.5)
[2017-01-27 06:39] LABS: ALBUMIN SERUM 1.6 g/dL (3.5-5.0); BILIRUBIN,TOTAL 0.4 mg/dL (0.2-2.0); BUN/CREATININE RATIO 23.75; CALCIUM SERUM 7.2 mg/dL (8.4-10.2); CREATININE SERUM 0.8 mg/dL (0.6-1.4); GLOM FILT RATE Estimated 88.7 mL/min (>60); MAGNESIUM 1.8 mg/dL (1.6-3.0); POTASSIUM 4.3 mmol/L (3.5-5.1); PROTEIN TOTAL SERUM 4.3 g/dL (6.0-8.3)
[2017-01-28 04:39] LABS: BASOPHIL% 0.1 % (0-2.5); HEMATOCRIT 26.1 % (38.0-50.0); HEMOGLOBIN 8.4 gm/dL (13.0-16.0); LYMPHOCYTE# 0.2 X10e3 (1.0-3.5); LYMPHOCYTE% 2.2 % (17.0-45.0); MEAN CELL VOLUME 89.5 FL (83-96); MEAN CORPUSCULAR HEMOGLOBIN 28.8 PG (28-34); MEAN CORPUSCULAR HGB CONC 32.2 g/dL (30-36); MEAN PLATELET VOLUME 8.9 FL (6.5-11.5); MONOCYTE# 0.5 X10e3 (0-1.0); MONOCYTE% 5.6 % (3.0-12.0); NEUTROPHIL% 92.1 % (40-75); PLATELET COUNT 116 X10e3 (140-420); RED BLOOD COUNT 2.92 X10e (3.90-5.60); RED CELL DISTRIBUTION WIDTH 18.3 % (11.0-15.5); WHITE BLOOD COUNT 9.8 X10e3 (4.0-10.5)
[2017-01-28 04:40] LABS: DIFF IND NO
[2017-01-28 04:50] LABS: ARTERIAL BLD GAS O2 SATURATION 97.7 % (90.0-100.0); ARTERIAL BLOOD GAS CARBOXY HB 1.1 %sat (0.0-9.0); ARTERIAL BLOOD GAS HCO3 24.3 mmol/L; ARTERIAL BLOOD GAS MET HB 0.7 %sat (0.0-2.0); ARTERIAL BLOOD GAS PCO2 44.6 mmHg (35.0-45.0); ARTERIAL BLOOD GAS pH 7.345 (7.350-7.450)
[2017-01-28 05:10] LABS: ALBUMIN SERUM 1.9 g/dL (3.5-5.0); BILIRUBIN,TOTAL 0.6 mg/dL (0.2-2.0); BUN/CREATININE RATIO 26.66; CALCIUM SERUM 7.2 mg/dL (8.4-10.2); CREATININE SERUM 0.6 mg/dL (0.6-1.4); GLOM FILT RATE Estimated 99.8 mL/min (>60); PROTEIN TOTAL SERUM 5.2 g/dL (6.0-8.3)
[2017-01-28 05:16] LABS: ARTERIAL BLOOD GAS ART SITE ARTERIAL LINE; ARTERIAL BLOOD GAS VENT MODE AC
[2017-01-28 19:28] LABS: PARTIAL THROMBOPLASTIN TIME 35.4 SECONDS (23.5-31.3)
[2017-01-29 04:21] LABS: ARTERIAL BLD GAS O2 SATURATION 98.7 % (90.0-100.0); ARTERIAL BLOOD GAS HCO3 24.3 mmol/L; ARTERIAL BLOOD GAS MET HB 0.7 %sat (0.0-2.0); ARTERIAL BLOOD GAS PCO2 39.9 mmHg (35.0-45.0); ARTERIAL BLOOD GAS pH 7.393 (7.350-7.450)
[2017-01-29 05:01] LABS: ARTERIAL DRAW? YES
[2017-01-29 05:01] LABS: HEMATOCRIT 21.8 % (38.0-50.0); LYMPHOCYTE# 0.1 X10e3 (1.0-3.5); LYMPHOCYTE% 1.8 % (17.0-45.0); MEAN CELL VOLUME 90.4 FL (83-96); MEAN CORPUSCULAR HEMOGLOBIN 29.2 PG (28-34); MEAN CORPUSCULAR HGB CONC 32.3 g/dL (30-36); MEAN PLATELET VOLUME 8.6 FL (6.5-11.5); MONOCYTE# 0.2 X10e3 (0-1.0); MONOCYTE% 3.9 % (3.0-12.0); NEUTROPHIL# 5.9 X10e3 (1.5-7.1); NEUTROPHIL% 94.3 % (40-75); RED BLOOD COUNT 2.41 X10e (3.90-5.60); RED CELL DISTRIBUTION WIDTH 19.1 % (11.0-15.5); WHITE BLOOD COUNT 6.2 X10e3 (4.0-10.5)
[2017-01-29 05:02] LABS: ARTERIAL BLOOD GAS ART SITE ARTERIAL LINE; ARTERIAL BLOOD GAS DELIVERY VENT; ARTERIAL BLOOD GAS VENT MODE AC
[2017-01-29 05:17] LABS: ALBUMIN SERUM 1.7 g/dL (3.5-5.0); BILIRUBIN,TOTAL 0.6 mg/dL (0.2-2.0); BUN/CREATININE RATIO 28.33; CALCIUM SERUM 7.3 mg/dL (8.4-10.2); CREATININE SERUM 0.6 mg/dL (0.6-1.4); GLOM FILT RATE Estimated 99.8 mL/min (>60); POTASSIUM 3.4 mmol/L (3.5-5.1); PROTEIN TOTAL SERUM 4.3 g/dL (6.0-8.3)
[2017-01-29 06:10] LABS: DIFF IND YES; PLATELET COUNT 81 X10e3 (140-420)
[2017-01-29 06:17] LABS: ANISOCYTOSIS SL; HYPOCHROMIA SL; PLATELET ESTIMATE DECREASED (NORMAL)
== END 2017-01-29 19:30 | disposition expired | DRG 853 ==
LOC: CED 23:33 → CEDOF 01-26 00:55 → CICCU2 01-26 13:51
PROVIDERS: Emergency Medicine; Family Medicine; Internal Medicine; Nurse Practitioner; Surgery
PROC: 30233N1 Transfusion of Nonautologous Red Blood Cells into Peripheral Vein, Percutaneous Approach (ICD-10-PCS; principal; 2017-01-26)
PROC: 03HB33Z Insertion of Infusion Device into Right Radial Artery, Percutaneous Approach (ICD-10-PCS; 2017-01-26)
PROC: 05H533Z Insertion of Infusion Device into Right Subclavian Vein, Percutaneous Approach (ICD-10-PCS; 2017-01-26)
PROC: B546ZZA Ultrasonography of Right Subclavian Vein, Guidance (ICD-10-PCS; 2017-01-26)
PROC: B246ZZZ Ultrasonography of Right and Left Heart (ICD-10-PCS; 2017-01-26)
PROC: 0DH67UZ Insertion of Feeding Device into Stomach, Via Natural or Artificial Opening (ICD-10-PCS; 2017-01-27)
PROC: 0WQ6XZ2 Repair Neck, Stoma, External Approach (ICD-10-PCS; 2017-01-29)
PROC: 5A1935Z Respiratory Ventilation, Less than 24 Consecutive Hours (ICD-10-PCS; 2017-01-29)
PROC: 0B21XFZ Change Tracheostomy Device in Trachea, External Approach (ICD-10-PCS; 2017-01-29)
DX: A41.9 Sepsis, unspecified organism (principal); J96.21 Acute and chronic respiratory failure with hypoxia; J69.0 Pneumonitis due to inhalation of food and vomit; I46.9 Cardiac arrest, cause unspecified; G93.1 Anoxic brain damage, not elsewhere classified; L89.224 Pressure ulcer of left hip, stage 4; J44.0 Chronic obstructive pulmonary disease with (acute) lower respiratory infection; J96.22 Acute and chronic respiratory failure with hypercapnia; J44.1 Chronic obstructive pulmonary disease with (acute) exacerbation; I50.22 Chronic systolic (congestive) heart failure; E87.1 Hypo-osmolality and hyponatremia; Z43.0 Encounter for attention to tracheostomy; I11.0 Hypertensive heart disease with heart failure; I25.10 Atherosclerotic heart disease of native coronary artery without angina pectoris; F17.210 Nicotine dependence, cigarettes, uncomplicated; Z95.1 Presence of aortocoronary bypass graft; Z95.5 Presence of coronary angioplasty implant and graft; E78.5 Hyperlipidemia, unspecified; Z86.73 Personal history of transient ischemic attack (TIA), and cerebral infarction without residual deficits; G89.4 Chronic pain syndrome; Z86.19 Personal history of other infectious and parasitic diseases; Z88.5 Allergy status to narcotic agent; Z91.041 Radiographic dye allergy status; I36.1 Nonrheumatic tricuspid (valve) insufficiency; Z51.5 Encounter for palliative care; Z79.02 Long term (current) use of antithrombotics/antiplatelets; I27.2 Other secondary pulmonary hypertension
CPT/HCPCS: 31500; 36556; 36600; 70450; 71010; 71275; 74000; 80048; 80053; 80061; 80202; 82150; 82550; 82553; 82803; 82947; 83690; 83735; 83880; 84100; 84443; 84484; 85025; 85379; 85610; 85730; 86850; 86900; 86901; 86923; 87040; 92950; 93005; 93306; 93970; 94002; 94003; 94640; 94644; 94760; 99291; C1769; J0171; J0360; J1200; J1265; J1325; J1650; J1940; J2060; J2250; J2270; J2543; J2930; J3010; J3370; J3475; J7060; P9016; Q9967